=== PATIENT | male | born 1965 | race Asian ===

== ENCOUNTER 2016-10-23 12:23 | Emergency (ER) | payer OTHER ==
[2016-10-23 13:28] VITALS: BP 144/89
--- NOTE | 2016-10-23 15:00 | UC ---
Back Pain HPI - HPI Summary HPI Summary: The patient comes in today for: 1. Lower back pain: Onset: One month ago. But, it got worse yesterday. Palliative/provocative: Getting out of a chair makes it worse. Leaning forward makes it worse. Walking--he will feel it "a little bit." Not moving makes it better. Working during day, and it gets better--"I feel nothing." Quality: Tightness Region: Lower back. Severity: Sitting? 10/25. Getting out of chair: 04/24. Getting out of bed in AM 04/24 Time: Constant. Associated symptoms: Home treatment: None. Fevers: None. Bowel/bladder incontinence: None. Numbness: None. Weakness: None. Recent unexplained weight loss: None. Previous treatment: None. Previous x-ray of back: He is not sure. * - History of Current Complaint Chief Complaint: UCBackPain Stated Complaint: BACK PAIN Time Seen by Provider: 10/23/16 14:52 Hx Obtained From: Patient, Family/Player Services Representative - Allergies/Home Medications Allergies/Adverse Reactions: Allergies Allergy/AdvReac Type Severity Reaction Status Date / Time No Known Allergies Allergy Verified 12/18/15 16:30 PMH/Surg Hx/FS Hx/Imm Hx Previously Healthy: Yes Endocrine History Of: Denies: Diabetes, Thyroid Disease, Hyperthyroidism, Hypothyroidism, Dyslipidemia Cardiovascular History Of: Denies: Cardiac Disorders, Hypertension, Pacemaker/ICD, Myocardial Infarction , Congestive Heart Failure, Atrial Fibrillation, Deep Vein Thrombosis, Bleeding Disorders Respiratory History Of: Denies: COPD, Asthma, Bronchitis, Pneumonia, Pulmonary Embolism GI/ History Of: Denies: Gastroesophageal Reflux, Ulcer, Gastrointestinal Bleed, Gall Bladder Disease, Kidney Stones, Diverticulitis, Renal Disease, Urosepsis Neurological History Of: Denies: TIA, CVA, Dementia, Seizures, Migraine Psychological History Of: Denies: Anxiety, Depression, Bipolar Disorder, Schizophrenia, Post Traumatic Stress Disorder Cancer History Of: Denies: Lung Cancer, Colorectal Cancer, Breast Cancer, Prostate Cancer, Cervical Cancer Other History Of: Negative For: HIV, Hepatitis B, Hepatitis C, Anticoagulant Therapy - Surgical History Surgical History: None - Family History Known Family History: Positive: Renal Disease Negative: Cardiac Disease, Hypertension - Social History Occupation: Employed Full-time Lives: With Family Alcohol Use: Occasionally Substance Use Type: None Smoking Status (MU): Light Every Day Tobacco Smoker Amount Used/How Often: 1/2ppd Household Exposure Type: Cigarettes Review of Systems Constitutional: Negative Skin: Negative Eyes: Negative ENT: Negative Respiratory: Negative Cardiovascular: Negative Gastrointestinal: Negative Genitourinary: Negative Musculoskeletal: Arthralgia, Myalgia All Other Systems Reviewed And Are Negative: Yes Physical Exam Triage Information Reviewed: Yes Appearance: Well-Appearing, No Pain Distress, Well-Nourished Vital Signs: Initial Vital Signs Temp 97.8 F 10/23/16 13:24 Pulse 73 10/23/16 13:24 Resp 20 10/23/16 13:24 BP 144/89 10/23/16 13:24 Pulse Ox 98 10/23/16 13:24 Vital Signs Reviewed: Yes Eyes: Positive: Conjunctiva Clear. Negative: Discharge ENT: Positive: Hearing grossly normal. Negative: Pharyngeal erythema, Nasal congestion, Nasal drainage, TM bulging, TM dull, TM red, Tonsillar swelling, Tonsillar exudate Dental: Negative: Gross Decay/Caries @, Dental Fracture @ Neck: Positive: Supple, Nontender, No Lymphadenopathy. Negative: Nuchal Rigidity Respiratory: Positive: Chest non-tender, Lungs clear, No respiratory distress, No accessory muscle use. Negative: Crackles, Wheezing Cardiovascular: Positive: RRR, No Murmur Abdomen Description: Positive: Nontender, No Organomegaly, Soft. Negative: CVA Tenderness (R), CVA Tenderness (L), Distended, Guarding Musculoskeletal: Positive: Strength Intact, ROM Intact, Other: - Back: There is no tenderness of the lumbar paraspinous musculature. There is no SLR of either leg. DTR: Patellar: 2+/2 x 2 right and left. Achilles: 1+/2 x 2. There is tenderness to palpation of the right greater trochanteric bursa area. Neurological: Positive: Alert, Muscle Tone Normal Psychological: Positive: Age Appropriate Behavior, Consolable Skin: Negative: rashes, breakdown Back Pain Course/Dx - Course Course Of Treatment: Patient was encouraged to get an x-ray of the lumbar spine either today or when he follows up with his primary care provider. - Differential Dx/Diagnosis Differential Diagnosis/HQI/PQRI: Herniated Disc, Strain, Sprain Provider Diagnoses: Osteoarthritis of the lumbar spine. Discharge - Discharge Plan Condition: Stable Disposition: HOME Patient Education Materials: Osteoarthritis (ED) Referrals: Nain Tello MD [Primary Care Provider] - 1 Week (Please see your primary care provider in a week to see how well you are doing. If you get worse, please be seen sooner in the ER or through us.)
== END 2016-10-23 15:32 | disposition home or self-care (01) ==
LOC: UCEAST 12:23
DX: M47.816 Spondylosis without myelopathy or radiculopathy, lumbar region (principal); F17.210 Nicotine dependence, cigarettes, uncomplicated
CPT/HCPCS: 99212; G0463

== ENCOUNTER 2017-01-27 15:44 | Emergency (ER) | payer OTHER ==
[2017-01-27 16:15] VITALS: BP 146/94
--- NOTE | 2017-01-27 16:55 | UC ---
Maria E Israel Alok, scribed for Donny Loco MD on 01/27/17 at 1638 . Skin Complaint HPI - HPI Summary HPI Summary: 51M presents to the [facility] for a raised, erythematous, pruritus, painful sore on his right inner thigh. Pt states that what began as a 1/4 cm diameter bump at that did not irritate him grew in the past 2-3 years to 2 cm diameter sore after repeated picking/cleaning. Pt states he has similar 1/4 cm diameter bumps on his left hip and back which do not currently irritate him as well. Pt denies edema on any other parts of the leg. Pt states that his skin condition bleeds when being picked at. Pt denies medications. Pt smokes tobacco and drinks ETOH. Pt has no PCP. - History of Current Complaint Chief Complaint: UCSkin Stated Complaint: SORE ON LEG Hx Obtained From: Patient Onset/Duration: Lasting Weeks - since , Still Present Timing: Constant Onset Severity: Moderate Current Severity: Moderate Pain Intensity: 8 Pain Scale Used: 0-10 Numeric Location: Other - right leg Character: Pruritus, Pain, Redness, Raised Aggravating: Other - picking/cleaning sore - Allergy/Home Medications Allergies/Adverse Reactions: Allergies Allergy/AdvReac Type Severity Reaction Status Date / Time No Known Allergies Allergy Verified 01/27/17 16:03 Home Medications: Home Medications NK [No Home Medications Reported] 01/27/17 [History Confirmed 01/27/17] Review of Systems Skin: Other - sore right inner thigh Musculoskeletal: Negative All Other Systems Reviewed And Are Negative: Yes PMH/Surg Hx/FS Hx/Imm Hx Previously Healthy: Yes Endocrine History Of: Denies: Diabetes, Thyroid Disease, Hyperthyroidism, Hypothyroidism, Dyslipidemia Cardiovascular History Of: Denies: Cardiac Disorders, Hypertension, Pacemaker/ICD, Myocardial Infarction , Congestive Heart Failure, Atrial Fibrillation, Deep Vein Thrombosis, Bleeding Disorders Respiratory History Of: Denies: COPD, Asthma, Bronchitis, Pneumonia, Pulmonary Embolism GI/ History Of: Denies: Gastroesophageal Reflux, Ulcer, Gastrointestinal Bleed, Gall Bladder Disease, Kidney Stones, Diverticulitis, Renal Disease, Urosepsis Neurological History Of: Denies: TIA, CVA, Dementia, Seizures, Migraine Psychological History Of: Denies: Anxiety, Depression, Bipolar Disorder, Schizophrenia, Post Traumatic Stress Disorder Cancer History Of: Denies: Lung Cancer, Colorectal Cancer, Breast Cancer, Prostate Cancer, Cervical Cancer Other History Of: Negative For: HIV, Hepatitis B, Hepatitis C, Anticoagulant Therapy - Surgical History Surgical History: None - Family History Known Family History: Positive: Renal Disease Negative: Cardiac Disease, Hypertension - Social History Occupation: Employed Full-time Lives: With Family Alcohol Use: Daily Substance Use Type: None Smoking Status (MU): Heavy Every Day Tobacco Smoker Amount Used/How Often: 1/2ppd Household Exposure Type: Cigarettes - Immunization History Most Recent Tetanus Shot: unsure Physical Exam Triage Information Reviewed: Yes Appearance: Well-Appearing, No Pain Distress, Well-Nourished Vital Signs: Initial Vital Signs Temp 98.5 F 01/27/17 16:03 Pulse 73 01/27/17 16:03 Resp 16 01/27/17 16:03 BP 146/94 01/27/17 16:03 Pulse Ox 100 01/27/17 16:03 Vital Signs Reviewed: Yes Eyes: Positive: Conjunctiva Clear ENT: Positive: Normal ENT inspection Respiratory: Positive: Lungs clear, Normal breath sounds, No respiratory distress Cardiovascular: Positive: RRR, No Murmur Abdomen Description: Positive: Nontender Musculoskeletal: Positive: Strength Intact, ROM Intact Neurological Exam: Normal Neurological: Positive: Alert Psychological: Positive: Normal Response To Family, Age Appropriate Behavior Skin: Positive: Other - there is a skin lesion about the size of a walnut on his medial right lower thigh with raised, solid mass and rough surface. No active bleeding. No secondary cellulitis. It is mildy tender. He has a second lesion on the left posterior upper thight that is about 3/4 of a centimeter in diamter with similar appearance. Course/Dx - Course Course Of Treatment: 51 yr old male with two skin lesions, they have progressively gotten bigger over many years with most notable increase in size the past two years. He has also elevated blood pressure. he has been told he needs to go to the general surgeon for further work up of what these skin lesions are with possible removal/biopsy and further treatment plan. He will follow up with dr Landry for his blood pressure and health maintenance. The patient understands that these lesions could be skin cancers, and he knows to follow up with the surgeon as soon as possible to have these lesions further diagnosed. - Diagnoses Provider Diagnoses: Skin tumors/mass right thigh, and left posterior thigh. elevated blood pressure. Discharge - Discharge Plan Condition: Good Disposition: HOME Patient Education Materials: Hypertension (ED), Skin Cancer Prevention (ED), Soft Tissue Mass (ED) Referrals: Kyrie Marks MD [Medical Doctor] - 1 Day (be sure to call the surgeon as soon as possible for an appointment regarding your skin lesions. ) Nain Tello MD [Primary Care Provider] - 1 Day Additional Instructions: Be sure to have your blood pressure rechecked with primary care, and be sure you follow up with Dr Marks for your skin. The documentation as recorded by the Maria E garcia Alok accurately reflects the service I personally performed and the decisions made by me, Donny Loco MD.
== END 2017-01-27 16:49 | disposition home or self-care (01) ==
LOC: UCEAST 15:44
DX: R22.41 Localized swelling, mass and lump, right lower limb (principal); R03.0 Elevated blood-pressure reading, without diagnosis of hypertension; F17.210 Nicotine dependence, cigarettes, uncomplicated
CPT/HCPCS: 99211; G0463

== ENCOUNTER → 2017-01-28 | Emergency (ER) | payer OTHER ==
[~2017-01-28] MED LIST: Aspirin Low Dose CHEW TAB* 81 MG PO ONE; Hydrochlorothiazide TAB* 25 MG PO ONE; Hydrochlorothiazide TAB* 25 MG PO SCH; NS 0.9% 1000 ML* 1,000 ML IV ONE
[2017-01-28 13:32] LABS: Hematocrit 46 % (42-52); Hemoglobin 15.4 g/dl (14.0-18.0); Mean Corpuscular HGB Conc 34 g/dl (31-36); Mean Corpuscular Hemoglobin 32 pg (27-31); Mean Corpuscular Volume 95 fL (80-94); Mean Platelet Volume 8 um3 (7.4-10.4); Red Blood Count 4.81 10^6/ul (4.0-5.4); Red Cell Distribution Width 13 % (10.5-15); White Blood Count 5.1 10^3/ul (3.5-10.8)
[2017-01-28 13:39] LABS: BUN/Creatinine Ratio 15.1 (8-20); Calcium 8.8 mg/dL (8.6-10.3); EGFR African American 109.3 (>60); Globulin 2.7 g/dL (2-4); Potassium 4.1 mmol/L (3.5-5.0); Total Bilirubin 0.6 mg/dL (0.2-1.0); Total Protein 6.7 g/dL (6.4-8.9)
[2017-01-28 13:42] LABS: Troponin I 0.01 ng/mL (<0.04)
--- NOTE | 2017-01-28 13:44 | RAD ---
INDICATION: Chest pain. COMPARISON: Comparison is made with a prior study from September 12, 2016. TECHNIQUE: Dual-energy PA and lateral views of the chest were obtained. FINDINGS: The heart is within normal limits in size. Mediastinal and hilar contours appear within normal limits. There is a linear density at the right lung base consistent with subsegmental atelectasis. The lungs are otherwise clear. No pleural effusion or pneumothorax is seen. IMPRESSION: NO EVIDENCE FOR ACTIVE CARDIOPULMONARY DISEASE.
--- NOTE | 2017-01-28 14:43 | CONSULT ---
Subjective Date of Service: 01/28/17 Interval History: 51 yo M with hx of recently diagnosed HTN, tobacco abuse p/w intermittent chest pain. He reports he has been having this chest pain for about 1 week. It is located in the L side of the chest and is a brief stabbing pain that resolves within seconds. States it is TTP when it occurs, non-pleuritic, no worse with exertion. Sometimes feels SOB with symptoms, no diaphoresis, numbness/tingling. He has not taken anything for it. He initially felt it was likely a MSK problem but he went to Urgent Care yesterday for an unrelated reason (skin lesions) and was told he had HTN and now he thought the symptoms may have been due to that and/or a cardiac problem. Family History: Findings - None Social History: Findings - Up to 1 PPD at most, usually 2-3 cigarettes x 40 years, occasional excessive EtOH up to 6-7/day, no drug use Past Medical History: Findings - Recently diagnosed HTN Review of Systems - Measurements Intake and Output: Intake and Output Last 24 Hours 01/26/17 01/27/17 01/28/17 01/29/17 06:59 06:59 06:59 06:59 Weight 90.718 kg - Review of Systems Constitutional Symptoms: Negative: Fever Dermatology: Positive: Normal HEENT: Positive: Normal Eyes: Positive: Normal Thyroid: Positive: Normal Pulmonary: Positive: Shortness of Breath Cardiology: Positive: Chest Pain Negative: Palpitations, Syncope Gastroenterology: Positive: Nausea Negative: Vomiting Genital - Urinary: Positive: Normal Endocrinology: Positive: Normal Psychiatry: Positive: Anxiety Objective Active Medications: Hydrochlorothiazide (Hydrodiuril Tab*) 25 mg PO DAILY BELLE Vital Signs 01/28/17 01/28/17 01/28/17 10:34 11:15 11:16 Temperature 98.1 F Pulse Rate 78 71 Respiratory 20 Rate Blood Pressure 182/85 156/96 (mmHg) O2 Sat by Pulse 99 98 Oximetry 01/28/17 01/28/17 01/28/17 11:20 11:30 12:00 Temperature 98.0 F Pulse Rate 68 73 68 Respiratory 12 13 14 Rate Blood Pressure 156/96 145/88 134/96 (mmHg) O2 Sat by Pulse 97 98 97 Oximetry 01/28/17 01/28/17 01/28/17 12:30 13:00 13:30 Temperature Pulse Rate 66 66 68 Respiratory 11 13 15 Rate Blood Pressure 133/89 141/84 (mmHg) O2 Sat by Pulse 97 99 100 Oximetry 01/28/17 13:36 Temperature Pulse Rate Respiratory 10 Rate Blood Pressure 154/94 (mmHg) O2 Sat by Pulse Oximetry Oxygen Devices in Use Now: None Appearance: Middle-aged, M, laying in bed in NAD Eyes: No Scleral Icterus Ears/Nose/Mouth/Throat: Mucous Membranes Moist Neck: NL Appearance and Movements; NL JVP Respiratory: Symmetrical Chest Expansion and Respiratory Effort, Clear to Auscultation Cardiovascular: NL Sounds; No Murmurs; No JVD, RRR Abdominal: NL Sounds; No Tenderness; No Distention Lymphatic: No Cervical Adenopathy Extremities: No Edema Skin: - - R thigh lesion, hyperkeratotic 2-3 cm lesions, non-tender, no surrounding erythema Neurological: Alert and Oriented x 3 Result Diagrams: 01/28/17 11:52 01/28/17 11:52 Assessment/Plan - Billing CP in a 51 yo M with hx of newly diagnosed HTN. Chest pain does not sound cardiac in nature (fleeting, reproducible, non- exertional) although the patient does have cardiac risk factors. I offered to monitor the patient overnight and do a stress test in the AM but he did not want to stay as he says he has too much to do in the morning tomorrow. I stated we could arrange for an outpatient stress test which he was agreeable to. I will start HCTZ 25 mg daily for HTN and he will follow-up with Dr. Tello in the clinic. In regards to his skin lesion he will contact the surgery office as instructed at urgent care.
[2017-01-28 16:15] VITALS: BP 146/78
--- NOTE | 2017-01-29 13:49 | ED ---
Lupe Israel Anna, scribed for MarquiseubalexeyiDane MD on 01/28/17 at 1335 . Dizziness - HPI Summary HPI Summary: Patient is a 51 y/o male coming to [facility] presenting with 4 days of left sided CP , worsened. Associated with mild SOB, and nausea. Denies syncope. Pt is also concerned of his elevated BP. He does not take medicines and does not see a doctor regularly. Patient medications were reviewed this visit. - History Of Current Complaint Chief Complaint: EDHypertension Stated Complaint: CHEST PAIN/HIGH BP Time Seen by Provider: 01/28/17 13:06 Hx Obtained From: Patient Onset/Duration: Resolved Timing: Seconds Severity Initially: Moderate Severity Currently: Moderate - Allergies/Home Medications Allergies/Adverse Reactions: Allergies Allergy/AdvReac Type Severity Reaction Status Date / Time No Known Allergies Allergy Verified 01/27/17 16:03 PMH/Surg Hx/FS Hx/Imm Hx Endocrine/Hematology History: Denies: Hx Anticoagulant Therapy, Hx Diabetes, Hx Thyroid Disease Cardiovascular History: Denies: Hx Congestive Heart Failure, Hx Deep Vein Thrombosis, Hx Hypertension , Hx Myocardial Infarction, Hx Pacemaker/ICD Respiratory History: Denies: Hx Asthma, Hx Chronic Obstructive Pulmonary Disease (COPD), Hx Lung Cancer, Hx Pneumonia, Hx Pulmonary Embolism GI History: Denies: Hx Gall Bladder Disease, Hx Gastrointestinal Bleed, Hx Ulcer, Hx Urosepsis History: Denies: Hx Kidney Stones, Hx Renal Disease Neurological History: Denies: Hx Dementia, Hx Migraine, Hx Seizures, Hx Transient Ischemic Attacks (TIA) Psychiatric History: Denies: Hx Anxiety, Hx Depression, Hx Schizophrenia, Hx Bipolar Disorder Infectious Disease History: No Infectious Disease History: Denies: Traveled Outside the [place] in Last 30 Days - Family History Known Family History: Positive: Renal Disease Negative: Cardiac Disease, Hypertension - Social History Lives: With Family Alcohol Use: Daily Substance Use Type: Reports: None Smoking Status (MU): Heavy Every Day Tobacco Smoker Amount Used/How Often: 1/2ppd Review of Systems Positive: Chest Pain - intermittent, currently resolved Positive: Shortness Of Breath Positive: Nausea Neurological: Other - dizziness Negative: Syncope Psychological: Normal All Other Systems Reviewed And Are Negative: Yes Physical Exam Triage Information Reviewed: Yes Vital Signs On Initial Exam: Initial Vitals Temp Pulse Resp BP Pulse Ox 98.1 F 78 20 182/85 99 01/28/17 10:34 01/28/17 10:34 01/28/17 10:34 01/28/17 10:34 01/28/17 10:34 Vital Signs Reviewed: Yes Appearance: Positive: Well-Appearing - No acute distress, nontoxic Skin: Positive: Warm, Skin Color Reflects Adequate Perfusion, Dry, Other - Small verrucous growth, about 2 cm diameter on anterior mid right thigh Eyes: Positive: EOMI, MARCO A, Conjunctiva Clear ENT: Positive: Normal ENT inspection Respiratory/Lung Sounds: Positive: Clear to Auscultation, Breath Sounds Present. Negative: Rales, Rhonchi, Wheezes Cardiovascular: Positive: RRR, S1, S2. Negative: Murmur, Rub, Other - no gallops Abdomen Description: Positive: Nontender, Soft. Negative: Distended, Guarding, Other: - no rebound Bowel Sounds: Positive: Present Musculoskeletal: Positive: Normal, Strength/ROM Intact Neurological: Positive: Normal, Sensory/Motor Intact, Alert, Oriented to Person Place, Time Psychiatric: Positive: Affect/Mood Appropriate - [place] Coma Scale Coma Scale Total: 15 Diagnostics - Vital Signs Vital Signs Temp Pulse Resp BP Pulse Ox 01/28/17 12:30 66 11 133/89 97 01/28/17 12:00 68 14 134/96 97 01/28/17 11:30 73 13 145/88 98 01/28/17 11:20 98.0 F 68 12 156/96 97 01/28/17 11:16 71 98 01/28/17 11:15 156/96 01/28/17 10:34 98.1 F 78 20 182/85 99 - Laboratory Lab Results: Lab Results 01/28/17 01/28/17 01/28/17 Range/Units 11:52 11:52 11:52 WBC 5.1 (3.5-10.8) 10^3/ul RBC 4.81 (4.0-5.4) 10^6/ul Hgb 15.4 (14.0-18.0) g/dl Hct 46 (42-52) % MCV 95 H (80-94) fL MCH 32 H (27-31) pg MCHC 34 (31-36) g/dl RDW 13 (10.5-15) % Plt Count 167 (150-450) 10^3/ul MPV 8 (7.4-10.4) um3 Neut % (Auto) 57.6 (38-83) % Lymph % (Auto) 30.7 (25-47) % Twiggs % (Auto) 8.8 (1-9) % Eos % (Auto) 2.0 (0-6) % Baso % (Auto) 0.9 (0-2) % Absolute Neuts (auto) 3.0 (1.5-7.7) 10^3/ul Absolute Lymphs (auto) 1.6 (1.0-4.8) 10^3/ul Absolute Monos (auto) 0.4 (0-0.8) 10^3/ul Absolute Eos (auto) 0.1 (0-0.6) 10^3/ul Absolute Basos (auto) 0 (0-0.2) 10^3/ul Absolute Nucleated RBC 0 10^3/ul Nucleated RBC % 0.1 INR (Anticoag Therapy) 0.86 L (0.89-1.11) APTT 27.9 (26.0-36.3) seconds Sodium 135 (133-145) mmol/L Potassium 4.1 (3.5-5.0) mmol/L Chloride 105 (101-111) mmol/L Carbon Dioxide 25 (22-32) mmol/L Anion Gap 5 (2-11) mmol/L BUN 14 (6-24) mg/dL Creatinine 0.93 (0.67-1.17) mg/dL Est GFR ( Amer) 109.3 (>60) Est GFR (Non-Af Amer) 85.0 (>60) BUN/Creatinine Ratio 15.1 (8-20) Glucose 111 H (70-100) mg/dL Calcium 8.8 (8.6-10.3) mg/dL Total Bilirubin 0.60 (0.2-1.0) mg/dL AST 29 (13-39) U/L ALT 36 (7-52) U/L Alkaline Phosphatase 54 (34-104) U/L Total Creatine Kinase 77 (10-223) U/L CK-MB (CK-2) 1.7 (0.6-6.3) ng/mL Myoglobin 22.1 (17.4-105.7) ng/mL Troponin I 0.01 (<0.04) ng/mL B-Natriuretic Peptide ( - 100) pg/mL Total Protein 6.7 (6.4-8.9) g/dL Albumin 4.0 (3.2-5.2) g/dL Globulin 2.7 (2-4) g/dL Albumin/Globulin Ratio 1.5 (1-3) 01/28/17 01/28/17 Range/Units 11:52 15:57 WBC (3.5-10.8) 10^3/ul RBC (4.0-5.4) 10^6/ul Hgb (14.0-18.0) g/dl Hct (42-52) % MCV (80-94) fL MCH (27-31) pg MCHC (31-36) g/dl RDW (10.5-15) % Plt Count (150-450) 10^3/ul MPV (7.4-10.4) um3 Neut % (Auto) (38-83) % Lymph % (Auto) (25-47) % Twiggs % (Auto) (1-9) % Eos % (Auto) (0-6) % Baso % (Auto) (0-2) % Absolute Neuts (auto) (1.5-7.7) 10^3/ul Absolute Lymphs (auto) (1.0-4.8) 10^3/ul Absolute Monos (auto) (0-0.8) 10^3/ul Absolute Eos (auto) (0-0.6) 10^3/ul Absolute Basos (auto) (0-0.2) 10^3/ul Absolute Nucleated RBC 10^3/ul Nucleated RBC % INR (Anticoag Therapy) (0.89-1.11) APTT (26.0-36.3) seconds Sodium (133-145) mmol/L Potassium (3.5-5.0) mmol/L Chloride (101-111) mmol/L Carbon Dioxide (22-32) mmol/L Anion Gap (2-11) mmol/L BUN (6-24) mg/dL Creatinine (0.67-1.17) mg/dL Est GFR ( Amer) (>60) Est GFR (Non-Af Amer) (>60) BUN/Creatinine Ratio (8-20) Glucose (70-100) mg/dL Calcium (8.6-10.3) mg/dL Total Bilirubin (0.2-1.0) mg/dL AST (13-39) U/L ALT (7-52) U/L Alkaline Phosphatase (34-104) U/L Total Creatine Kinase (10-223) U/L CK-MB (CK-2) (0.6-6.3) ng/mL Myoglobin (17.4-105.7) ng/mL Troponin I 0.01 (<0.04) ng/mL B-Natriuretic Peptide 22 ( - 100) pg/mL Total Protein (6.4-8.9) g/dL Albumin (3.2-5.2) g/dL Globulin (2-4) g/dL Albumin/Globulin Ratio (1-3) Result Diagrams: 01/28/17 11:52 01/28/17 11:52 Lab Statement: Any lab studies that have been ordered have been reviewed, and results considered in the medical decision making process. - Radiology CXR Xray Interpretation: No Acute Changes Radiology Interpretation Completed By: Radiologist - EKG 1055 Cardiac Rate: NL - 72 bpm EKG Rhythm: Sinus Rhythm ST Segment: Normal Ectopy: None Dizzy Course/Dx - Course Assessment/Plan: Patient is a 51 y/o male coming to [facility] presenting with dizziness that began four days ago. Initial troponin is 0.01. CXR shows no signs of acute distress. EKG reveals NSR at 72 bpm. Discussed lifestyle changes with family and need for stress test. Repeat troponin is 0.01. After conversation with Dr. Carlos, hospitalist, patient and family opt for outpatient stress test. Patient is stable and will be discharged home with follow up recommendations. - Diagnoses Provider Diagnoses: Chest pain - Provider Notifications Discussed Care Of Patient with: Dr. Carlos (hospitalist) at 1433. The patient does not want to stay, and he will be ordered an outpatient stress test. Discharge - Discharge Plan Condition: Stable Disposition: HOME Prescriptions: Hydrochlorothiazide TAB* [Hydrodiuril TAB*] 25 mg PO DAILY #30 tab Patient Education Materials: Hydrochlorothiazide (By mouth), Chronic Hypertension (ED) Referrals: Nain Tello MD [Primary Care Provider] - Walter Palomo MD [Medical Doctor] - Additional Instructions: Follow up with primary care physician within 48 hours and certified maintenance welder for stress test. Return to the Emergency Department for new or worsening symptoms. The documentation as recorded by the Lupe garcia Anna accurately reflects the service I personally performed and the decisions made by Tone roper Afoma Frances, MD.
== END | disposition home or self-care (01) ==
LOC: ED 10:33 → UNDOADMOB 14:08 → MEDTELE 14:08
DX: R07.9 Chest pain, unspecified (principal); I10 Essential (primary) hypertension
CPT/HCPCS: 36415; 71020; 80053; 82550; 82553; 83874; 83880; 84484; 85025; 85610; 85730; 93005; 99283; A9270-GY

== ENCOUNTER 2017-07-08 17:35 | Emergency (ER) | payer OTHER ==
[2017-07-08 18:00] VITALS: BP 144/64
[2017-07-08] MEDS ORDERED: methylPREDNISolone 125 MG* 2 ML VIAL IM ONE (18:20)
--- NOTE | 2017-07-08 18:20 | UC ---
Back Pain HPI - HPI Summary HPI Summary: 51 year old male presents with lower back pain and right thigh pain. - History of Current Complaint Chief Complaint: UCBackPain Stated Complaint: BACK PAIN Time Seen by Provider: 07/08/17 18:10 Hx Obtained From: Patient Onset/Duration: Sudden Onset Timing: Constant Severity Initially: Moderate Severity Currently: Moderate Pain Scale Used: 0-10 Numeric - 8 Character: Sharp Aggravating Factor(s): Movement, Lifting, Bending - Allergies/Home Medications Allergies/Adverse Reactions: Allergies Allergy/AdvReac Type Severity Reaction Status Date / Time No Known Allergies Allergy Verified 07/08/17 18:00 PMH/Surg Hx/FS Hx/Imm Hx Previously Healthy: Yes Other History Of: Negative For: HIV, Hepatitis B, Hepatitis C, Anticoagulant Therapy - Surgical History Surgical History: None - Family History Known Family History: Positive: Renal Disease Negative: Cardiac Disease, Hypertension - Social History Alcohol Use: Daily Alcohol Amount: last drink was one week ago Substance Use Type: None Smoking Status (MU): Current Some Day Smoker Amount Used/How Often: 1/2ppd Household Exposure Type: Cigarettes - Immunization History Most Recent Tetanus Shot: unsure Review of Systems Constitutional: Negative Skin: Negative Eyes: Negative ENT: Negative Respiratory: Negative Cardiovascular: Negative Gastrointestinal: Negative Genitourinary: Negative Motor: Negative Neurovascular: Negative Musculoskeletal: Other: - lower back pain right thigh pain Neurological: Negative Psychological: Negative All Other Systems Reviewed And Are Negative: Yes Physical Exam Triage Information Reviewed: Yes Vital Signs: Initial Vital Signs Temp 36.3 C 07/08/17 17:55 Pulse 70 07/08/17 17:55 Resp 20 07/08/17 17:55 BP 144/64 07/08/17 17:55 Pulse Ox 99 07/08/17 17:55 Eye Exam: Normal ENT Exam: Normal Dental Exam: Normal Neck exam: Normal Neck: Positive: 1 Respiratory Exam: Normal Cardiovascular Exam: Normal Abdominal Exam: Normal Musculoskeletal: Positive: Strength Limited @, ROM Limited @, Other: - right thigh pain lower back pain Neurological Exam: Normal Psychological Exam: Normal Skin Exam: Normal Diagnostics - Radiology No standard instances Radiology Interpretation Completed By: Radiologist Back Pain Course/Dx - Differential Dx/Diagnosis Provider Diagnoses: bilateral si pain. right greater trochanteric pain Discharge - Discharge Plan Condition: Stable Disposition: HOME Prescriptions: Methocarbamol TAB* [Robaxin 500 MG TAB*] 500 mg PO TID PRN #30 tab PRN Reason: Spasms - Back Methylprednisolone [Medrol Dosepak 4 MG*] 4 mg PO .SEE [place] [employer] #21 tab Patient Education Materials: Hip Bursitis (ED), Sacroiliitis (ED) [place] [facility] [place] [Medical Doctor] - Nain Tello MD [Primary Care Provider] -
== END 2017-07-08 18:50 | disposition home or self-care (01) ==
LOC: UCEAST 17:35
DX: M53.3 Sacrococcygeal disorders, not elsewhere classified (principal); M25.551 Pain in right hip; Z72.0 Tobacco use
CPT/HCPCS: 96372; 99212; G0463; J2930

== ENCOUNTER 2018-04-30 13:27 | Emergency (ER) | payer OTHER ==
--- NOTE | 2018-04-30 13:47 | ED ---
HPI Chest Pain - HPI Summary HPI Summary: Pt is a 52 y/o M c/o CP and SOB onset earlier this date. Pain is described as and rated an 8/10, per triage. Friend at bedside, reports that when he is dealing with SOB episodes, it is very scary when he is grasping for air. They also note that these episodes mostly come on at night. Assoc. Sx: Dyspnea at rest, CP, SOB. Denies: cough. Denies taking any aspirin today. PMHx: Denies CAD. FHx: Denies CAD - History of Current Complaint Chief Complaint: EDChestPainROMI Hx Obtained From: Patient Timing: Constant Current Severity: Severe Pain Intensity: 8 Pain Scale Used: 0-10 Numeric Chest Pain Location: Mid Sternal Chest Pain Radiates: No Character: Dyspnea at Rest, Other: - NEG: cough POS: SOB, CP - Allergy/Home Medications Allergies/Adverse Reactions: Allergies Allergy/AdvReac Type Severity Reaction Status Date / Time No Known Allergies Allergy Verified 04/30/18 13:37 PMH/Surg Hx/FS Hx/Imm Hx Endocrine/Hematology History: Denies: Hx Anticoagulant Therapy, Hx Diabetes, Hx Thyroid Disease Cardiovascular History: Reports: Hx Angina, Hx Hypertension Denies: Hx Congestive Heart Failure, Hx Coronary Artery Disease, Hx Deep Vein Thrombosis, Hx Hypercholesterolemia, Hx Myocardial Infarction, Hx Pacemaker /ICD, Hx Valvular Heart Disease Respiratory History: Denies: Hx Asthma, Hx Chronic Obstructive Pulmonary Disease (COPD), Hx Lung Cancer, Hx Pneumonia, Hx Pulmonary Embolism GI History: Denies: Hx Gall Bladder Disease, Hx Gastrointestinal Bleed, Hx Ulcer, Hx Urosepsis History: Denies: Hx Kidney Stones, Hx Renal Disease Neurological History: Denies: Hx Dementia, Hx Migraine, Hx Seizures, Hx Transient Ischemic Attacks (TIA) Psychiatric History: Denies: Hx Anxiety, Hx Depression, Hx Schizophrenia, Hx Bipolar Disorder Infectious Disease History: No Infectious Disease History: Denies: Hx Clostridium Difficile, Hx Hepatitis, Hx Human Immunodeficiency Virus (HIV), Hx of Known/Suspected MRSA, Hx Shingles, Hx Tuberculosis, Hx Known/ Suspected VRE, Hx Known/Suspected VRSA, History Other Infectious Disease, Traveled Outside the [place] in Last 30 Days - Family History Known Family History: Positive: Renal Disease Negative: Cardiac Disease, Hypertension - Social History Occupation: Employed Full-time Lives: With Family Alcohol Use: Daily Alcohol Amount: last drink was one week ago Substance Use Type: Reports: None Hx Tobacco Use: Yes Smoking Status (MU): Current Some Day Smoker Amount Used/How Often: 1/2ppd Review of Systems Negative: Fever, Chills, Fatigue, Skin Diaphoresis Negative: Photophobia, Blurred Vision, Diplopia, Drainage, Erythema Negative: Epistaxis, Dental Pain, Sore Throat, Ear Ache, Nasal Discharge Positive: Chest Pain. Negative: Palpitations Positive: Shortness Of Breath, Other - Dyspnea at rest. Negative: Cough Negative: Abdominal Pain, Vomiting, Diarrhea, Nausea Negative: burning, dysuria, discharge, frequency, flank pain, hematuria, incontinence, pain, urgency Negative: Arthralgia, Myalgia, Decreased ROM, Edema Negative: Rash, Bruising Negative: Headache, Weakness, Paresthesia, Numbness, Syncope, Slurred Speech Negative: Anxious, Depressed All Other Systems Reviewed And Are Negative: Yes Physical Exam - Summary Physical Exam Summary: Constitutional: Well-developed, Well-nourished, Alert. (-) Distressed Skin: Warm, Dry HENT: Normocephalic; Atraumatic Eyes: Conjunctiva normal Neck: Musculoskeletal ROM normal neck. (-) JVD, (-) Stridor, (-) Tracheal deviation Cardio: Rhythm regular, rate normal, Heart sounds normal; Intact distal pulses; The pedal pulses are 2+ and symmetric. Radial pulses are 2+ and symmetric. (-) Murmur Pulmonary/Chest wall: Diminished breath sounds. (-) Respiratory distress, (-) Wheezes, (-) Rales Abd: Soft, (-) epigastric tenderness, (-) Distension, (-) Guarding, (-) Rebound Musculoskeletal: (-) Edema Lymph: (-) Cervical adenopathy Neuro: Alert, Oriented x3 Psych: Mood and affect Normal Triage Information Reviewed: Yes Vital Signs On Initial Exam: Initial Vitals Temp Pulse Resp BP Pulse Ox 98.4 F 78 18 159/71 96 04/30/18 13:32 04/30/18 13:32 04/30/18 13:32 04/30/18 13:32 04/30/18 13:32 Vital Signs Reviewed: Yes Diagnostics - Vital Signs Vital Signs Temp Pulse Resp BP Pulse Ox 04/30/18 13:32 98.4 F 78 18 159/71 96 - Laboratory Result Diagrams: 04/30/18 13:54 04/30/18 13:54 Lab Statement: Any lab studies that have been ordered have been reviewed, and results considered in the medical decision making process. - Radiology CXR Xray Interpretation: No Acute Changes - IMPRESSION: No active cardiopulmonary disease is noted. Radiology Interpretation Completed By: Radiologist - Report has been reviewed by provider and radiologist. - EKG 1425 Cardiac Rate: NL - 70 bpm EKG Rhythm: Sinus Rhythm ST Segment: Normal Re-Evaluation - Re-Evaluation First Eval Re-Evaluation Time: 17:00 Change: Improved Comment: Patient is feeling much better; chest tightness has resolved: Unclear which treatment relieved CP. Chest Pain Course/Dx - Course Course Of Treatment: Provider discussed increased risk of from [place] but pt will leave AMA, regardless. Provider states this bc he has increased troponin levels. Provider reccomends taking Aspirin daily. - Diagnoses Provider Diagnoses: Chest pain, SOB (shortness of breath) Discharge - Sign-Out/Discharge Documenting (check all that apply): Patient Departure - Discharge Plan Condition: Stable Disposition: AGAINST MEDICAL ADVICE Prescriptions: Albuterol HFA INHALER* [Ventolin HFA Inhaler*] 1 puff INH Q4H PRN #1 mdi PRN Reason: Shortness Of Breath Aspirin TAB* [Aspirin 325 MG TAB*] 325 mg PO DAILY #30 tab predniSONE TAB* [Deltasone TAB*] 50 mg PO DAILY #4 tab Patient Education Materials: Chest Pain (ED), Shortness of Breath (ED) Referrals: [facility] [Outside] - 2 Days
[2018-04-30 14:10] LABS: ABS Basophils 0.1 10^3/ul (0-0.2); ABS Eosinophils 0.1 10^3/ul (0-0.6); ABS Lymphocytes 1.5 10^3/ul (1.0-4.8); ABS Monocytes 0.5 10^3/ul (0-0.8); ABS Neutrophils 3.1 10^3/ul (1.5-7.7); ABS Nucleated RBC 0 10^3/ul; Eosinophil % 2.3 % (0-6); Hematocrit 43 % (42-52); Hemoglobin 14.6 g/dl (14.0-18.0); Lymphocyte % 29.3 % (25-47); Mean Corpuscular HGB Conc 34 g/dl (31-36); Mean Corpuscular Hemoglobin 32 pg (27-31); Mean Corpuscular Volume 95 fL (80-94); Mean Platelet Volume 7.4 um3 (7.4-10.4); Nucleated Red Blood Cells % 0.1; Platelet Count 168 10^3/ul (150-450); Red Cell Distribution Width 14 % (10.5-15); White Blood Count 5.2 10^3/ul (3.5-10.8)
--- NOTE | 2018-04-30 14:19 | RAD ---
Indication: Chest pain. Single frontal view of the chest performed at 1358 hours was reviewed. Comparison is made with previous exam dated January 28, 2017. No mediastinal shift is noted. Heart is of normal size and configuration. Lung robin appear clear. IMPRESSION: NO ACTIVE CARDIOPULMONARY DISEASE IS NOTED.
[2018-04-30] MEDS ORDERED: Nitroglycerin TAB 0.4 MG* 0.4 MG TAB SL ONE (14:25)
[2018-04-30] MEDS ORDERED: methylPREDNISolone 125 MG* 2 ML VIAL IV ONE (14:25)
[2018-04-30] MEDS ORDERED: Aspirin 81 mg CHEW TAB* 81 MG TAB.CHEW PO ONE (14:25)
[2018-04-30] MEDS ORDERED: Albuterol/Ipratropium NEB.SOL* Albuterol 2.5 MG/Ipratropium 0.5 MG 3 ML INH ONE (14:25)
[2018-04-30 14:27] LABS: EGFR Non-African American 90.2 (>60)
[2018-04-30 15:18] LABS: Urine Appearance Clear; Urine Blood 1+ (Negative); Urine Color Yellow; Urine Ketones Negative (Negative); Urine Protein Negative (Negative); Urine Red Blood Cell 1+(3-5/hpf) (Absent); Urine Specific Gravity 1.015 (1.010-1.030); Urine Urobilinogen Negative (Negative); Urine White Blood Cell Trace(0-5/hpf) (Absent)
[2018-04-30 18:23] VITALS: BP 177/74
== END 2018-04-30 18:40 | disposition left against medical advice (07) ==
LOC: ED 13:27
DX: R07.89 Other chest pain (principal); R06.02 Shortness of breath; Z72.0 Tobacco use
CPT/HCPCS: 36415; 71045; 80053; 81003; 81015; 83605; 83880; 84484; 85025; 85379; 87086; 93005; 96374; 99284; A9270-GY; J2930

== ENCOUNTER → 2018-07-07 14:34 | Emergency (ER) | payer OTHER ==
[~2018-07-07 14:34] MED LIST changes: -Aspirin Low Dose CHEW TAB* 81 MG PO ONE; +Diazepam TAB(*) 5 MG PO ONE; -Hydrochlorothiazide TAB* 25 MG PO ONE; -Hydrochlorothiazide TAB* 25 MG PO SCH; +Iohexol 300* (CONTRAST) 10 ML SDV IV ONE; +Ketorolac INJ* 30 MG/ML 1 ML VIAL IV PUSH ONE; +Morphine INJ* 4 MG/ML 1 ML SYRINGE (NEW SYRINGE VERSION) IV ONE; -NS 0.9% 1000 ML* 1,000 ML IV ONE; +Ondansetron INJ* 2 MG/ML VIAL IV ONE; +methylPREDNISolone SOD 40 MG* 1 ML VIAL IV ONE
--- OUTSIDE RECORDS SUMMARY | 2018-07-07 14:40 | XMS REPORT ---
:1965 External Reference #:[id number] Author Organization [facility] Address [address] [place] [address] [place] [address] Phone [phone] Care Team Providers Name Role Phone [facility] Cap Referral Line Care Team Information Boom Supervisor Unavailable Nain Tello MD Primary Care Physician Unavailable Payers Type Date Identification Numbers Payment Provider Subscriber Commercial Policy Number: [id number] [place] Shanell James Group Name: [id number] [address] [id number] PayID: [id number] [place] [address] Problems Date Description Provider Status Onset: 09/12/2016 Body mass index 30+ - obesity Nain Tello M.D.,GIGI Active Onset: 02/05/2017 Essential hypertension Nain Tello M.D.,FACP Active Onset: 02/05/2017 Ex-smoker Nain Tello M.D.,FACP Active Family History Date Family Member(s) Problem(s) Comments Father due to Accident () Father due to () - when Accidental patient 7 : (age 80 Mother due to Pneumonia Years) Siblings 6 First Brother Kidney Disease had renal transplant Social History Type Date Description Comments Marital Status Lives With 09/12/2016 Family 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 Cigarette Use Quit - Age 44 Cigarette Use Patient is a current cigarette 1/2 pack smoker, smokes every day Cigarette Use < 1/2 ppd; started age 16 ETOH Use Occasionally consumes alcohol ETOH Use Consumes 2 six packs of beer per day Smoking Patient is a former smoker Quit 01/2017 Recreational Drug Use Denies Drug Use Daily Caffeine 09/12/2016 Consumes on average 1 cup of regular coffee per day Exercise Type/Frequency Gym workout 3-4x/week Exercise Type/Frequency Does not exercise General Hx Text 4 children Allergies, Adverse Reactions, Alerts Date Description Reaction Status Severity Comments 09/12/2016 NKDA active Medications Medication Date Status Form Strength Qnty SIG Indications Ordering Provider Ibuprofen 06/10/ Active Tablets 600mg 30tabs 1 tab S23.3xxA Vilma 2018 by wesly Reece M.D. three times a day as needed Cyclobenzaprine HCL 06/10/ Active Tablets 10mg 10tabs 1 S23.3xxA Vilma 2018 tablet Reece, by Ezekiel mouth at night No Active Medications 06/10/ Hx Unknown 2017 - 2017 No Active Medications 09/12/ Hx Unknown 2015 - 2016 Alprazolam 12/28/ Hx Tablets 0.5mg 90tabs 1 Donny Key 2009 tablet Clare, po tid M.DStoney prn Hydrochlorothiazide / Hx Tablets 25mg 90tabs 1 by Nain Quesada Wanda, 06/10/ claudia Falcon,FACP 2017 Vital Signs Date Vital Result Comment 06/10/2018 Height 67 inches 5'7" Weight 225.00 lb Heart Rate 80 /min BP Systolic Sitting 120 mmHg BP Diastolic Sitting 72 mmHg Pain Level 9 O2 % BldC Oximetry 93 % BMI (Body Mass Index) 35.2 kg/m2 02/17/2017 Heart Rate 72 /min BP Systolic 132 mmHg BP Diastolic 84 mmHg Respiratory Rate 16 /min Body Temperature 97.1 F 02/05/2017 Weight 222.12 lb Heart Rate 72 /min BP Systolic Sitting 126 mmHg BP Diastolic Sitting 80 mmHg BP Systolic Recheck 130 mmHg BP Diastolic Recheck 78 mmHg Body Temperature 98.5 F O2 % BldC Oximetry 97 % 02/03/2017 Heart Rate 72 /min BP Systolic 130 mmHg BP Diastolic 84 mmHg Respiratory Rate 18 /min Body Temperature 97.5 F 09/12/2016 Height 67 inches 5'7" Weight 220.38 lb Heart Rate 73 /min BP Systolic 150 mmHg BP Diastolic 84 mmHg BP Systolic Recheck 135 mmHg BP Diastolic Recheck 74 mmHg Body Temperature 98.1 F O2 % BldC Oximetry 98 % BMI (Body Mass Index) 34.5 kg/m2 12/28/2009 Height 68.5 inches 5'8.50" Weight 181.00 lb Heart Rate 60 /min BP Systolic Sitting 120 mmHg BP Diastolic Sitting 78 mmHg BMI (Body Mass Index) 27.1 kg/m2 Results Test Date Test Result H/L Range Note Laboratory test finding 04/30/2018 Troponin-I (TnI) 0.03 ng/mL <0.04 Urinalysis Profile 04/30/2018 Urine Color Yellow Urine Appearance Clear Urine Specific [place] 1.015 1.010-1.030 Urine pH 7.0 5-9 Urine Urobilinogen Negative Negative Urine Ketones Negative Negative Urine Protein Negative Negative Urine Leukocytes Negative Negative Urine Blood 1+ Negative Urine Nitrite Negative Negative Urine Bilirubin Negative Negative Urine Glucose Negative Negative Urine White Blood Cell Trace(0-5/hpf) Absent Urine Red Blood Cell 1+(3-5/hpf) Absent Urine Bacteria Absent Absent Urine Culture And 04/30/2018 Urine Culture SEE RESULT 1 Sensitivities BELOW Laboratory test 04/30/2018 D Dimer Quantitative < 200 ng/mL Less Than 2 finding 230 B-Type Natriuretic Peptide BNP 8 pg/mL 3 Laboratory test 02/03/2017 Surgical Pathology SEE RESULT BELOW 4 finding Laboratory test 01/28/2017 Partial Thrombo Time 27.9 seconds 26.0-36.3 finding PTT Inr/Protime 01/28/2017 Inr 0.86 Low 0.89-1.11 CKMB 01/28/2017 CKMB ng/mL 1.7 ng/mL 0.6-6.3 Laboratory test 01/28/2017 Creatine Kinase(CK) 77 U/L 10-223 finding Troponin-I (TnI) 0.01 ng/mL <0.04 5 Myoglobin 22.1 ng/mL 17.4-105.7 Comp Metabolic Panel 01/28/2017 Sodium 135 mmol/L 133-145 Potassium 4.1 mmol/L 3.5-5.0 Chloride 105 mmol/L 101-111 Co2 Carbon Dioxide 25 mmol/L 22-32 Anion Gap 5 mmol/L 2-11 Glucose 111 mg/dL High 70-100 Blood Urea Nitrogen 14 mg/dL 6-24 Creatinine 0.93 mg/dL 0.67-1.17 BUN/Creatinine Ratio 15.1 8-20 Calcium 8.8 mg/dL 8.6-10.3 Total Protein 6.7 g/dL 6.4-8.9 Albumin 4.0 g/dL 3.2-5.2 Globulin 2.7 g/dL 2-4 Albumin/Globulin Ratio 1.5 1-3 Total Bilirubin 0.60 mg/dL 0.2-1.0 Alkaline Phosphatase 54 U/L 34-104 Alt 36 U/L 7-52 Ast 29 U/L 13-39 Egfr Non- 85.0 >60 Egfr 109.3 >60 6 Laboratory test finding 01/28/2017 B-Type Natriuretic 22 pg/mL 7 Peptide BNP CBC Auto Diff 01/28/2017 White Blood Count 5.1 10^3/uL 3.5-10.8 Red Blood Count 4.81 10^6/uL 4.0-5.4 Hemoglobin 15.4 g/dL 14.0-18.0 Hematocrit 46 % 42-52 Mean Corpuscular Volume 95 fL High 80-94 Mean Corpuscular Hemoglobin 32 pg High 27-31 Mean Corpuscular HGB Conc 34 g/dL 31-36 Red Cell Distribution Width 13 % 10.5-15 Platelet Count 167 10^3/uL 150-450 Mean Platelet Volume 8 um3 7.4-10.4 Abs Neutrophils 3.0 10^3/uL 1.5-7.7 Abs Lymphocytes 1.6 10^3/uL 1.0-4.8 Abs Monocytes 0.4 10^3/uL 0-0.8 Abs Eosinophils 0.1 10^3/uL 0-0.6 Abs Basophils 0 10^3/uL 0-0.2 Abs Nucleated RBC 0 10^3/uL Granulocyte % 57.6 % 38-83 Lymphocyte % 30.7 % 25-47 Monocyte % 8.8 % 1-9 Eosinophil % 2.0 % 0-6 Basophil % 0.9 % 0-2 Nucleated Red Blood Cells % 0.1 Laboratory test finding 01/28/2017 Troponin-I (TnI) 0.01 ng/mL <0.04 8 Testosterone Free & Total 09/13/2016 Free Testosterone ng/dl 10.5 ng/dL 4.06-15.6 9 Testosterone 362 ng/dL 240-950 10 Laboratory test finding 09/13/2016 Hepatitis C Antibody Nonreactive Nonreactive HIV 1/2 AB Evaluation 09/13/2016 HIV 1 2 Antibody Nonreactive Nonreactive 11 Lipid Profile 09/13/2016 Triglycerides 134 mg/dL 12 (Trig/Chol/HDL) Cholesterol 177 mg/dL 13 HDL Cholesterol 46.6 mg/dL 14 LDL Cholesterol 104 mg/dL 15 Urinalysis Profile 09/13/2016 Urine Color Yellow Urine Appearance Clear Urine Specific [place] 1.028 1.010-1.030 Urine pH 5.0 5-9 Urine Urobilinogen Negative Negative Urine Ketones Negative Negative Urine Protein Negative Negative Urine Leukocytes Negative Negative Urine Blood 2+ Negative Urine Nitrite Negative Negative Urine Bilirubin Negative Negative Urine Glucose Negative Negative Urine White Blood Cell Absent Absent Urine Red Blood Cell 3+(>10/hpf) Absent Urine Bacteria Absent Absent Basic Metabolic Panel 09/13/2016 Sodium 135 mmol/L 133-145 Potassium 4.2 mmol/L 3.5-5.0 Chloride 104 mmol/L 101-111 Co2 Carbon Dioxide 27 mmol/L 22-32 Anion Gap 4 mmol/L 2-11 Glucose 106 mg/dL High 70-100 Blood Urea Nitrogen 13 mg/dL 6-24 Creatinine 1.00 mg/dL 0.67-1.17 BUN/Creatinine Ratio 13.0 8-20 Calcium 8.7 mg/dL 8.6-10.3 Egfr Non- 78.5 >60 Egfr 100.9 >60 16 Laboratory test finding 09/13/2016 TSH (Thyroid Stim 4.64 mcIU/mL 0.34- 5.60 17 Horm) CBC Auto Diff 09/13/2016 White Blood Count 6.1 10^3/uL 3.5-10.8 Red Blood Count 4.78 10^6/uL 4.0-5.4 Hemoglobin 15.4 g/dL 14.0-18.0 Hematocrit 46 % 42-52 Mean Corpuscular Volume 96 fL High 80-94 Mean Corpuscular Hemoglobin 32 pg High 27-31 Mean Corpuscular HGB Conc 33 g/dL 31-36 Red Cell Distribution Width 13 % 10.5-15 Platelet Count 169 10^3/uL 150-450 Mean Platelet Volume 8 um3 7.4-10.4 Abs Neutrophils 3.2 10^3/uL 1.5-7.7 Abs Lymphocytes 2.1 10^3/uL 1.0-4.8 Abs Monocytes 0.7 10^3/uL 0-0.8 Abs Eosinophils 0.1 10^3/uL 0-0.6 Abs Basophils 0 10^3/uL 0-0.2 Abs Nucleated RBC 0 10^3/uL Granulocyte % 53.2 % 38-83 Lymphocyte % 33.8 % 25-47 Monocyte % 10.7 % High 1-9 Eosinophil % 1.7 % 0-6 Basophil % 0.6 % 0-2 Nucleated Red Blood Cells % 0.1 DR Sparks's Lab Panel 12/28/2009 TSH 3.16 MIU/ML 0.34-5.60 Comp Metabolic Panel 12/28/2009 Sodium 138 mmol/L 135-145 Potassium 4.5 mmol/L 3.5-5.0 Chloride 105 mmol/L 101-111 Co2 (Carbon Dioxide) 30.0 mmol/L 22-32 Anion Gap 3.0 mmol/L 2-11 18 Glucose 79 mg/dL 70-100 19 BUN 13 mg/dL 6-24 Creatinine 0.90 mg/dL 0.50-1.40 One Over Creatinine 1.10 BUN/Creatinine Ratio 14.4 8-20 Calcium 9.2 mg/dL 8.1-9.9 20 Total Protein 6.1 GM/DL Low 6.2-8.1 Albumin 3.9 GM/DL 3.6-5.4 Globulin 2.2 GM/DL 2-4 Albumin/Globulin Ratio 1.8 1-3 Bilirubin Total 0.8 mg/dL 0.4-1.5 21 Alkaline Phosphatase 42 U/L 39-117 Alt (SGPT) 29 U/L 17-63 Ast (Sgot) 30 U/L 12-42 eGFR Non- 96.6 > 60 eGFR 116.8 > 60 22 Lipid Profile (Trig/Chol/HDL) 12/28/2009 Triglyceride 66 mg/dL 40-200 Cholesterol 156 mg/dL Less Than 200 23 High Density Lipoprotein 39 mg/dL Low 40-60 24 Cholesterol/HDL Ratio 4.00 AVERAGE 1-4.97 Low Density Lipoprotein 104 mg/dL High Less Than 100 25 CBC With Electronic Diff 12/28/2009 White Blood Count 6.0 CUMM 4.8-10.8 Red Cell Count 4.43 CUMM Low 4.6-6.2 Hemoglobin 14.5 g/dL 14.0-18.0 Hematocrit 42 % 42-52 Mean Corpuscular Volume 95 um3 High 80-94 Mean Corpuscular Hemoglob 33 pg High 27-31 Mean Corpuscular HGB Cone 35 g/dL 32-36 Redcell Distribution WDTH 12 % 10.5-15 Platelet Count 168 CUMM 150-450 Mean Platelet Volume 7.6 um3 7.4-10.4 Gran % 59.7 % 38-83 Lymph % 28.0 % 25-47 Mononuclear % 10.0 % High 1-9 Eosinophil % 1.9 % 0-6 Basophil % 0.4 % 0-2 Abs Lymphs 1.7 1.0-4.8 Abs Mononuclear 0.6 0-0.8 Absolute Neutrophil Count 3.6 1.5-7.7 Abs Eosinophils 0.1 0-0.6 Abs Basophils 0 0-0.2 1 SEE RESULT BELOW Name: KELTON JAMESAN : [address]: Hill Cisneros MD Acct: [id number] Unit: [id number] AGE: 52 Location: ED Re04/30/18 SEX: M Status: REG ER SPEC: [id number] PETE: 04/30/18-[address] [facility] [address]: Hill Cisneros MD REQ: [id number] RECD: 04/30/18 STATUS: CLARISSA MON DR: Nain Tello MD _ SOURCE: URINE SPDESC: ORDERED: Urine Culture Procedure Result Reported Site Urine Culture Final 05/01/18- 1313 ML No Growth (<1,000 CFU/mL) * ML - Main Lab . END OF REPORT DEPARTMENT OF PATHOLOGY, [address] [place] [address] Du Barron M.D. Director [facility] # [id number] 2 Please note: The following may produce a false positive D Dimer test: - Rheumatoid factor greater than 60 IU/ml - Plasma hemoglobin greater than 0.05 gm/dl - Bilirubin greater than 50 mg/dl - Lipids greater than 1000 mg/dl - FDP greater than 20 ug/ml 3 >100 to <200 pg/mL: likely compensated congestive heart failure (CHF) 200 to 400 pg/mL: likely moderate CHF >400 pg/mL: likely moderate to severe CHF 4 SEE RESULT BELOW Name: SHANELL JAMES : [address]: Kyrie Marks MD Acct: [id number] Unit: [id number] AGE: 51 Location: [facility] Re02/03/17 SEX: M Status: REG REF SPEC: [id number] PETE: 02/03/17-[address]: Kyrie Marks MD REQ: [id number] RECD: 02/03/17 STATUS: SOUT _ ORDERED: LEVEL 4 COMMENTS: [id number] FINAL DIAGNOSIS Skin, right thigh lesion, excision: -- Inflamed verrucous keratosis. CLINICAL HISTORY No history given GROSS DESCRIPTION The specimen is received in formalin labeled, Right Thigh Lesion Biopsy, and consists of a 0.6 x 0.4 cm bryan-brown oscillated skin punch excised to a depth 0.2 cm which is bisected longitudinally and entirely submitted in one cassette. Signed (signature on file) Du Barron MD 1433 END OF REPORT * ML=Testing performed at Main Lab DEPARTMENT OF PATHOLOGY, [address] [place] [address] Du Barron M.D. Director [facility] # [id number] 5 99th percentile=0.04 ng/mL Troponin results at [facility] and [facility] are not interchangeable. 6 Because ethnic data is not always readily available, this report includes an eGFR for both -Americans and non- Americans. The National Kidney Disease Education Program (NKDEP) does not endorse the use of the MDRD equation for patients that are not between the ages of 18 and 70, are , have extremes of body size, muscle mass, or nutritional status, or are non- or non-. According to the National Kidney Foundation, irrespective of diagnosis, the stage of the disease is based on the level of kidney function: Stage Description GFR(mL/min/1.73 m(2)) 1 Kidney damage with normal or decreased GFR 90 2 Kidney damage with mild decrease in GFR 60-89 3 Moderate decrease in GFR 30-59 4 Severe decrease in GFR 15-29 5 Kidney failure <15 (or dialysis) 7 >100 to <200 pg/mL: likely compensated congestive heart failure (CHF) 200 to 400 pg/mL: likely moderate CHF >400 pg/mL: likely moderate to severe CHF 8 99th percentile=0.04 ng/mL Troponin results at [facility] and [facility] are not interchangeable. 9 ADDITIONAL INFORMATION Testing performed by [facility]. This test was developed and its performance characteristics determined by [facility] in a manner consistent with CLIA requirements. This test has not been cleared or approved by the U.S. Food and Drug Administration. 10 ADDITIONAL INFORMATION Testing performed by Liquid Chromatography-Tandem Mass Spectrometry (LC-MS/MS). This test was developed and its performance characteristics determined by [facility] in a manner consistent with CLIA requirements. This test has not been cleared or approved by the U.S. Food and Drug Administration. Test Performed by: [place] [address] Transitional Nurse: Carlos Enrique Jackson II, M.D., Ph.D. 11 It is recognized that currently available assays for the detection of antibodies to HIV-1 and/or HIV-2 may not detect all infected individuals. HIV antibodies may be undetectable in some stages of the infection and in some clinical conditions. The performance of this assay has not been established for populations of infants or children. Assayed by Chemiluminescence Microparticle Immunoassay on the Siemens Advia Centaur CP. Values obtained with different methods or kits cannot be used interchangeably.The diagnostic specificity of the ADVIA Centaur 1/O/2 Enhanced assay in the low risk population was 99.90% (6052/6058) with a 95% confidence interval of 99.78 to 99.96%. 12 Desirable <150 Borderline high 150-199 High 200-499 Very High >500 13 Desirable <200 Borderline high 200-239 High >239 14 Low <40 Desirable: 40-60 High: >60 15 Desirable: <100 mg/dL Near Optimal: 100-129 mg/dL Borderline High: 130-159 mg/dL High: 160-189 mg/dL Very High: >189 mg/dL 16 Because ethnic data is not always readily available, this report includes an eGFR for both -Americans and non- Americans. The National Kidney Disease Education Program (NKDEP) does not endorse the use of the MDRD equation for patients that are not between the ages of 18 and 70, are , have extremes of body size, muscle mass, or nutritional status, or are non- or non-. According to the National Kidney Foundation, irrespective of diagnosis, the stage of the disease is based on the level of kidney function: Stage Description GFR(mL/min/1.73 m(2)) 1 Kidney damage with normal or decreased GFR 90 2 Kidney damage with mild decrease in GFR 60-89 3 Moderate decrease in GFR 30-59 4 Severe decrease in GFR 15-29 5 Kidney failure <15 (or dialysis) 17 FASTING 18 Anion gap measurement may be of limited value in the presence of any alkalosis, especially in a combined acid base disorder. . 19 Note change in reference range as of 05/05/08. The change was based on recommendations from the [place] Diabetes [employer]. 20 Please note change in reference range effective 08 . 21 A metabolite of Naproxen, O-desmethylnaproxen, has been shown to interfere with the Jendrassik-Peyton method for measuring total bilirubin. Samples from patients who have taken Naproxen have shown spurious elevation in total bilirubin levels. 22 Because ethnic data is not always readily available, this report includes an eGFR for both -Americans and non- Americans. The National Kidney Disease Education Program (NKDEP) does not endorse the use of the MDRD equation for patients that are not between the ages of 18 and 70, are , have extremes of body size, muscle mass, or nutritional status, or are non- or non-. According to the National Kidney Foundation, irrespective of diagnosis, the stage of the disease is based on the level of kidney function: Stage Description GFR(mL/min/1.73 m(2)) 1 Kidney damage with normal or decreased GFR 90 2 Kidney damage with mild decrease in GFR 60-89 3 Moderate decrease in GFR 30-59 4 Severe decrease in GFR 15-29 5 Kidney failure <15 (or dialysis) 23 CHOLESTEROL INTERPRETATION: Desirable: Less than 200 MG/DL Borderline-High Risk: 200-239 MG/DL High-Risk: 240 MG/DL and over 24 HDL INTERPRETATION: Undesirable: High Risk: Less than 40 MG/DL Desirable: Low Risk: Greater than 60 MG/DL 25 LDL INTERPRETATION: Low Risk Optimal Level: LDL Less than 100 MG/DL Near or Above Optimal: LDL 100-129 MG/DL Borderline High Risk: LDL 130-159 MG/DL High Risk: LDL 160-189 MG/DL Very High Risk: LDL Greater than 189 MG/DL Procedures Date CPT Code Description Status 02/03/2017 68415 Treadmill Interp/Report Only Completed 02/03/2017 14303 Stress Test Supervsn W/Out I/R Completed 02/03/2017 12205 Biopsy Skin Lesion Single Completed Encounters Type Date Location Provider CPT E/M Dx Office Visit 02/17/2017 [facility] [place] [address]15a [address] Traffic Control Technician Office Visit 02/05/2017 [facility] Internal Medicine Nain Tello, [address] I10 4:40p - [place] Luis Falcon,FACP R07.9 B07.9 Office Visit 02/03/2017 10:30a [facility] [place] [address] Control Technician Office Visit 01/28/2017 10:23a [facility], [place] [address] R07.9 Hospitalists I10 Office Visit 09/12/2016 1:40p Highway Traffic Control Technician Internal Nain Tello, 44294 R53.83 Medicine - [place] Luis Falcon,FACP R63.5 R05 Z11.4 Office Visit 12/28/2009 10:00a DO Not Use Highway Traffic Control Technician AT [facility], [address] 300.09 Stephania Falcon Plan of Care 06/10/2018 - Vilma Reece M.D.S23.3xxA Sprain of ligaments of thoracic spine , initial encounterNew Medication:Ibuprofen 600 mgCyclobenzaprine HCL 10 mgNew Therapy:Physical TherapyComments:continue to use heat , we discussed the muscle relaxant can cause some sedation so please take it atnight always take Ibuprofen with foodFollow up:annual physical with Dr. Tello in 1 crjubI35.9xxA Sprain of unsp parts of lumbar spine and pelvis, init encntr
--- OUTSIDE RECORDS SUMMARY | 2018-07-07 14:41 | XMS REPORT ---
:1965 External Reference #:[id number] Author Organization [facility] [employer] Address [address] [place] [address] [place] [address] Phone [phone] Care Team Providers Name Role Phone [facility] Cap Referral Line Care Team Information .Net Developer Unavailable Nain Tello MD Primary Care Physician Unavailable Payers Type Date Identification Numbers Payment Provider Subscriber Commercial Policy Number: [id number] [place] Shanell James Group Name: [id number] [address] [id number] PayID: [id number] [place] [address] Problems Date Description Provider Status Onset: 09/12/2016 [...] Marital Status Lives With 09/12/2016 Family 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 Cigarette Use Quit [...] Tablets 25mg 90tabs 1 by Nain Quesada [place], 06/10/ claudia Falcon,FACP 2017 Vital Signs Date [...] Color Yellow Urine Appearance Clear Urine Specific [place] 1.015 1.010-1.030 Urine pH 7.0 5-9 Urine [...] Color Yellow Urine Appearance Clear Urine Specific [place] 1.028 1.010-1.030 Urine pH 5.0 5-9 Urine [...] [address]: Hill Cisneros MD Acct: [id number] Unit: [id number] AGE: 52 Location: ED Re04/30/18 SEX: M Status: REG ER SPEC: [id number] PETE: 04/30/18-[address] [facility] [address]: Hill Cisneros MD REQ: [id number] RECD: 04/30/18 STATUS: CLARISSA MON DR: Nain Tello MD _ SOURCE: URINE SPDESC: ORDERED: Urine Culture Procedure Result Reported Site Urine Culture Final 05/01/18- 1313 ML No Growth (<1,000 CFU/mL) * ML - Main Lab . END OF REPORT DEPARTMENT OF PATHOLOGY, [address] [place] [address] Du Barron M.D. Director [facility] # [id number] 2 Please note: The following may produce [...] [address]: Kyrie Marks MD Acct: [id number] Unit: [id number] AGE: 51 Location: [facility] Re02/03/17 SEX: M Status: REG REF SPEC: [id number] PETE: 02/03/17-[address]: Kyrie Marks MD REQ: [id number] RECD: 02/03/17 STATUS: SOUT _ ORDERED: LEVEL 4 COMMENTS: [id number] FINAL DIAGNOSIS Skin, right thigh lesion, excision: [...] performed at Main Lab DEPARTMENT OF PATHOLOGY, [address] [place] [address] Du Barron M.D. Director [facility] # [id number] 5 99th percentile=0.04 ng/mL Troponin results at [facility] and [facility] are not interchangeable. 6 Because ethnic data [...] 8 99th percentile=0.04 ng/mL Troponin results at [facility] and [facility] are not interchangeable. 9 ADDITIONAL INFORMATION Testing performed by [facility]. This test was developed and its performance characteristics determined by [facility] in a manner consistent with CLIA requirements. This test has not been cleared or approved by the U.S. Food and Drug Administration. 10 ADDITIONAL INFORMATION Testing performed by Liquid Chromatography-Tandem Mass Spectrometry (LC-MS/MS). This test was developed and its performance characteristics determined by [facility] in a manner consistent with CLIA requirements. This test has not been cleared or approved by the U.S. Food and Drug Administration. Test Performed by: [place] [address] Patent Solicitor: Carlos Enrique Jackson II, M.D., Ph.D. 11 [...] change was based on recommendations from the [place] Diabetes [employer]. 20 Please note change in [...] Procedures Date CPT Code Description Status 02/03/2017 16294 Treadmill Interp/Report Only Completed 02/03/2017 86765 Stress Test Supervsn W/Out I/R Completed 02/03/2017 57705 Biopsy Skin Lesion Single Completed Encounters Type Date Location Provider CPT E/M Dx Office Visit 02/17/2017 [facility] [place] [address] L98.9 10:15a Manager Talent Office Visit 02/05/2017 [facility] Internal Medicine Nain Tello, [address] I10 4:40p - [place] Luis Falcon,FACP R07.9 B07.9 Office Visit 02/03/2017 10:30a [facility] [place] [address] L98.9 Manager Talent Office Visit 01/28/2017 10:23a [facility], [place] [address] R07.9 Hospitalists I10 Office Visit 09/12/2016 1:40p Manager Talent Internal Nain Tello, 576[address] R53.83 Medicine - [place] Luis Falcon,FACP R63.5 R05 Z11.4 Office Visit 12/28/2009 10:00a DO Not Use Manager Talent AT [facility], [address] 300.09 Stephania Falcon Plan of Care 06/10/2018 - Vilma Reece M.D.S23.3xxA Sprain of ligaments of thoracic spine , initial encounterNew Medication:Ibuprofen 600 mgCyclobenzaprine HCL 10 mgNew Therapy:Physical TherapyComments:continue to use heat , we discussed the muscle relaxant can cause some sedation so please take it atnight always take Ibuprofen with foodFollow up:annual physical with Dr. Tello in 1 veufhA45.9xxA Sprain of unsp parts of lumbar spine and pelvis, init encntr
[2018-07-07 17:01] LABS: ABS Basophils 0.1 10^3/ul (0-0.2); ABS Eosinophils 0.1 10^3/ul (0-0.6); ABS Lymphocytes 2.1 10^3/ul (1.0-4.8); ABS Monocytes 0.8 10^3/ul (0-0.8); ABS Neutrophils 5.4 10^3/ul (1.5-7.7); ABS Nucleated RBC 0 10^3/ul; Eosinophil % 1.5 % (0-6); Hematocrit 45 % (42-52); Hemoglobin 16.1 g/dl (14.0-18.0); Lymphocyte % 24.7 % (25-47); Mean Corpuscular HGB Conc 36 g/dl (31-36); Mean Corpuscular Hemoglobin 34 pg (27-31); Mean Corpuscular Volume 94 fL (80-94); Mean Platelet Volume 7.5 um3 (7.4-10.4); Nucleated Red Blood Cells % 0.2; Platelet Count 164 10^3/ul (150-450); Red Blood Count 4.79 10^6/ul (4.00-5.40); Red Cell Distribution Width 13 % (10.5-15); White Blood Count 8.5 10^3/ul (3.5-10.8)
[2018-07-07 17:11] LABS: EGFR Non-African American 96.5 (>60)
--- NOTE | 2018-07-07 17:17 | ED ---
Back Pain - HPI Summary HPI Summary: Patient presents with acute on chronic back pain. He admits he's had central lower back pain over the past month which is been getting progressively worse. Today he had radiculopathy into the left lower extremity for the first time. Reports he was seen last week at an urgent care by Dr. Barry and was prescribed some medications (ibuprofen and Flexeril possibly?) Which did not help his pain. He did not have any imaging at that time. He has had issues with his back on and off over the past few years and was seen at [facility] last year. Again he received anti-inflammatories but no imaging. He does not follow with his PCP job all needed hasn't seen him in quite a few years. He denies fevers chills numbness tingling or weakness however pain in his back and legs are worse when he tries to flex at the hips or move his left lower extremity. He admits to difficulty especially in the morning with waking and getting out of bed. He is stiff and has a lot of pain. Sometimes he has to get down on all fours and then has difficult time standing. He reports he would not have made it into the hospital today if his female form worker had not brought him here. He denies bladder or bowel incontinence however he does admit he's had left lower quadrant abdominal pain with bowel urgency. This morning, he also admits to nausea with dry heaves. He is not sure if this were from abdominal pain or back pain. Denies fever, chills, chest pain, shortness of breath, upper back pain, cough. He works at a [employer] and is on his feet for many hours today as well as lifting heavy bins, etc. He is concerned not only about his back pain but also about his abdominal pain and GI symptoms. Denies hematochezia and melena. - History of Current Complaint Chief Complaint: EDBackInjuryPain Stated Complaint: BACK PAIN Time Seen by Provider: 07/07/18 15:36 Hx Obtained From: Patient, Family/Brand Designer - female form worker Pain Intensity: 10 - Allergies/Home Medications Allergies/Adverse Reactions: Allergies Allergy/AdvReac Type Severity Reaction Status Date / Time No Known Allergies Allergy Verified 07/07/18 14:37 PMH/Surg Hx/FS Hx/Imm Hx Previously Healthy: Yes Endocrine/Hematology History: Denies: Hx Anticoagulant Therapy, Hx Diabetes, Hx Thyroid Disease Cardiovascular History: Reports: Hx Angina, Hx Hypertension Denies: Hx Congestive Heart Failure, Hx Coronary Artery Disease, Hx Deep Vein Thrombosis, Hx Hypercholesterolemia, Hx Myocardial Infarction, Hx Pacemaker /ICD, Hx Valvular Heart Disease Respiratory History: Denies: Hx Asthma, Hx Chronic Obstructive Pulmonary Disease (COPD), Hx Lung Cancer, Hx Pneumonia, Hx Pulmonary Embolism GI History: Denies: Hx Cirrhosis, Hx Crohn's Disease, Hx Diverticulosis, Hx Gall Bladder Disease, Hx Gastroesophageal Reflux Disease, Hx Gastrointestinal Bleed, Hx Hiatal Hernia, Hx Irritable Bowel, Hx Obstructive Bowel, Hx Ulcer, Hx Urosepsis History: Denies: Hx Kidney Stones, Hx Renal Disease Musculoskeletal History: Reports: Hx Back Problems - chronic pain w/ intermittent acute attacks - no imaging to date Neurological History: Denies: Hx Dementia, Hx Migraine, Hx Seizures, Hx Transient Ischemic Attacks (TIA) Psychiatric History: Denies: Hx Anxiety, Hx Depression, Hx Schizophrenia, Hx Bipolar Disorder Infectious Disease History: No Infectious Disease History: Denies: Hx Clostridium Difficile, Hx Hepatitis, Hx Human Immunodeficiency Virus (HIV), Hx of Known/Suspected MRSA, Hx Shingles, Hx Tuberculosis, Hx Known/ Suspected VRE, Hx Known/Suspected VRSA, History Other Infectious Disease, Traveled Outside the [place] in Last 30 Days - Family History Known Family History: Positive: Renal Disease Negative: Cardiac Disease, Hypertension - Social History Occupation: Employed Full-time - works at a [employer]: With Family Alcohol Use: Daily Alcohol Amount: last drink was one week ago Hx Substance Use: No Substance Use Type: Reports: None Hx Tobacco Use: Yes Smoking Status (MU): Current Some Day Smoker Amount Used/How Often: 1/2ppd or less Review of Systems Constitutional: Negative Negative: Fever, Chills, Fatigue Cardiovascular: Negative Negative: Palpitations, Chest Pain Respiratory: Negative Negative: Shortness Of Breath, Cough Positive: Abdominal Pain, Diarrhea, Nausea Genitourinary: Negative Positive: Arthralgia, Myalgia, Decreased ROM - LLE d/t pain Skin: Negative Neurological: Negative Positive: Anxious All Other Systems Reviewed And Are Negative: Yes Physical Exam Triage Information Reviewed: Yes Vital Signs On Initial Exam: Initial Vitals Temp Pulse Resp BP Pulse Ox 97.8 F 83 18 149/73 100 07/07/18 14:35 10/23/18 14:35 07/07/18 14:35 07/07/18 14:35 07/07/18 14:35 Vital Signs Reviewed: Yes Appearance: Positive: Well-Appearing, Pain Distress, Obese Skin: Positive: Warm, Skin Color Reflects Adequate Perfusion, Dry Head/Face: Positive: Normal Head/Face Inspection Eyes: Positive: Normal, EOMI, Conjunctiva Clear - anicteric sclera ENT: Positive: Normal ENT inspection, Hearing grossly normal, Pharynx normal - mucosa moist Neck: Positive: Supple Respiratory/Lung Sounds: Positive: Breath Sounds Present Cardiovascular: Positive: Normal Abdomen Description: Positive: Distended - firm abdomen, vast girth (difficult to assess if this is baseline or pathological) Bowel Sounds: Positive: Present Musculoskeletal: Positive: Pain @, Other - + SLR on Lt; SLR on Rt illicits pain in LT Low back Neurological: Positive: Normal, Sensory/Motor Intact, Alert, Oriented to Person Place, Time, CN Intact II-III, Other - rectal tone intact - no saddle paresthesia Psychiatric: Positive: Anxious - concerned about pain and sx Diagnostics - Vital Signs Vital Signs Temp Pulse Resp BP Pulse Ox 07/07/18 17:07 16 07/07/18 14:35 97.8 F 83 18 149/73 100 - Laboratory Lab Results: Lab Results 07/07/18 07/07/18 Range/Units 16:44 16:44 WBC 8.5 (3.5-10.8) 10^3/ul RBC 4.79 (4.00-5.40) 10^6/ul Hgb 16.1 (14.0-18.0) g/dl Hct 45 (42-52) % MCV 94 (80-94) fL MCH 34 H (27-31) pg MCHC 36 (31-36) g/dl RDW 13 (10.5-15) % Plt Count 164 (150-450) 10^3/ul MPV 7.5 (7.4-10.4) um3 Neut % (Auto) 63.5 (38-83) % Lymph % (Auto) 24.7 L (25-47) % Blanco % (Auto) 9.5 H (0-7) % Eos % (Auto) 1.5 (0-6) % Baso % (Auto) 0.8 (0-2) % Absolute Neuts (auto) 5.4 (1.5-7.7) 10^3/ul Absolute Lymphs (auto) 2.1 (1.0-4.8) 10^3/ul Absolute Monos (auto) 0.8 (0-0.8) 10^3/ul Absolute Eos (auto) 0.1 (0-0.6) 10^3/ul Absolute Basos (auto) 0.1 (0-0.2) 10^3/ul Absolute Nucleated RBC 0 10^3/ul Nucleated RBC % 0.2 Sodium 136 (135-145) mmol/L Potassium 4.3 (3.5-5.0) mmol/L Chloride 106 (101-111) mmol/L Carbon Dioxide 24 (22-32) mmol/L Anion Gap 6 (2-11) mmol/L BUN 12 (6-24) mg/dL Creatinine 0.83 (0.67-1.17) mg/dL Est GFR ( Amer) 116.8 (>60) Est GFR (Non-Af Amer) 96.5 (>60) BUN/Creatinine Ratio 14.5 (8-20) Glucose 91 (70-100) mg/dL Calcium 9.1 (8.6-10.3) mg/dL Magnesium 2.0 (1.9-2.7) mg/dL Total Bilirubin 0.60 (0.2-1.0) mg/dL AST 25 (13-39) U/L ALT 34 (7-52) U/L Alkaline Phosphatase 48 (34-104) U/L C-Reactive Protein < 1.00 (<8.01) mg/L Total Protein 7.1 (6.4-8.9) g/dL Albumin 4.2 (3.2-5.2) g/dL Globulin 2.9 (2-4) g/dL Albumin/Globulin Ratio 1.4 (1-3) Lipase 33 (11.0-82.0) U/L Result Diagrams: 07/07/18 16:44 07/07/18 16:44 Lab Statement: Any lab studies that have been ordered have been reviewed, and results considered in the medical decision making process. Re-Evaluation - Re-Evaluation First Eval Change: Improved - Rt LBP improved w/ IV morphine however he still has Lt LBP. CT ab/pelvis does not reveal acute GI/ pathology and CT lumbar spine reveals multi-level DDD w/ stenosis. Will try seroid, NSAID and muscle relaxer for pain relief. Back Pain Course/Dx - Course Course Of Treatment: Pt had complaints within JAMES LBP and GI issues (urgency w/ frequency when home from work -does not have this at work). Also has urinary urgency - no stacey incontinence of either. CT ab/pelvis was w/o acute findings but did find an enlarged prostate - discussed w/ pt who will f/u w/ PCP. CT lumbar spine correlates w/ sx he's having of lumbar radiculopathy. Will trial IV steroid, NSAID and muscle relaxer. If pain and function continue to be limited, may benefit from admission for pain control and MRI w/neurosurg consult as he has moderate canal stenosis on CT. If improves, recommend outpt meds for control of sx (prednisone 60mg daily x 5 days, ibuprofen 800mg every 8 hrs and diazepam for muscle relaxtion) , close f/u w/ [facility] this week and out of work until cleared to return. Pt will most likely benefit from MRI outpt as well given the extent of his pathology and sx here tonight. He reports an urgent care provider rx'd PT for him last week - advised to refrain from PT until cleared by [facility] if appropriate. Pt and partner agree w/ plan. Also reviewed danger s/sx of when to return to ED. SIgned out to Tawnya Velazco PA-C in stable condition and pending pain control, improved function to go home. Again, if he is unable to attain these goals, may benefit from admission as he has had 3 IV pain meds and 1 PO. - Diagnoses Provider Diagnoses: Lumbar radiculopathy, Enlarged prostate, Lumbar spinal stenosis, Lumbar foraminal stenosis Discharge - Sign-Out/Discharge Documenting (check all that apply): Sign-Out Patient Signing out patient TO: Abby Velazco - Discharge Plan Condition: Stable - Billing Disposition and Condition Condition: STABLE
--- NOTE | 2018-07-07 17:53 | RAD ---
CLINICAL HISTORY: LLQ AB PAIN + lumbar radiculopathy COMPARISON: None TECHNIQUE: Multiple contiguous axial CT scans were obtained of the abdomen and pelvis after the administration of intravenous contrast. Coronal and sagittal multiplanar reformations are submitted for review. Oral contrast was not administered. Delayed images were obtained through the abdomen. FINDINGS: LUNG BASES: The lung bases are clear. LIVER: The liver is normal in shape, size, contour, and attenuation. BILE DUCTS: There is no intrahepatic or extrahepatic biliary dilatation. GALLBLADDER: The gallbladder is normal, without pericholecystic inflammatory change. PANCREAS: The pancreas is normal, without mass or ductal dilatation. SPLEEN: Normal in size and appearance. UPPER GI TRACT: Evaluation of the gastrointestinal tract is limited by incomplete gastric distention. The upper GI tract is unremarkable. SMALL BOWEL AND MESENTERY: There is mild distention of loops of small bowel within the upper abdomen without clear transition point or dilatation. COLON: The colon is normal in contour, course, caliber. There is no pericolonic inflammatory change. ADRENALS: Normal bilaterally. KIDNEYS: The kidneys are normal in shape, size, contour, and axis. There is no hydronephrosis or nephrolithiasis. BLADDER: The bladder is smooth in contour. PELVIC ORGANS: The prostate is diffusely enlarged. The seminal vesicles are symmetric. AORTA: The aorta is normal. IVC: Unremarkable LYMPH NODES: There is no lymphadenopathy by size criteria. ABDOMINAL WALL: There is a fat-containing left inguinal hernia. BONES AND SOFT TISSUES: There are mild diffuse degenerative changes. OTHER: None IMPRESSION: ENLARGED PROSTATE. MILDLY DISTENDED LOOPS OF SMALL BOWEL WITHIN THE UPPER ABDOMEN WITHOUT DILATATION NO ACUTE CT PATHOLOGY OF THE VISUALIZED ABDOMEN AND PELVIS.
--- NOTE | 2018-07-07 18:01 | RAD ---
HISTORY: Lt lumbar radiculopathy COMPARISONS: None TECHNIQUE: Multiple contiguous axial CT scans were obtained of the lumbar spine with intravenous contrast, with coronal and sagittal multiplanar reformations. FINDINGS: SPINAL CANAL: Evaluation of the central canal is limited on CT technique; however, there is no obvious canalicular mass or epidural hemorrhage. ALIGNMENT: There is straightening of the lumbar lordosis. VERTEBRAL BODIES: There is anterolateral marginal osteophyte formation. The vertebral bodies are preserved in height. There is diffuse fusiform narrowing of central canal secondary to congenitally short pedicles. JOINTS: There is no subluxation or dislocation. MUSCULATURE: Unremarkable INTERVERTEBRAL DISCS: There is diffuse loss of intervertebral disc height throughout the spine. AXIAL IMAGES: T12-L1: There is no osseous neural foraminal narrowing or central canal stenosis. L1-L2: There is no osseous neural foraminal narrowing or central canal stenosis. L2-L3: There is no osseous neural foraminal narrowing or central canal stenosis. L3-L4: There is no osseous neural foraminal narrowing or central canal stenosis. L4-L5: There is mild ligamentous hypertrophy. There is mild bilateral neuroforaminal narrowing. There is moderate narrowing of central canal. L5-S1: There is a mild disc bulge with ligamentous hypertrophy. There is mild narrowing of the central canal. There is no osseous neural foraminal narrowing. SOFT TISSUES: The visualized soft tissues of the abdomen are unremarkable. OTHER: None IMPRESSION: 1. DEGENERATIVE DISC DISEASE. 2. DIFFUSE FUSIFORM NARROWING OF THE CENTRAL CANAL SECONDARY TO CONGENITALLY SHORT PEDICLES. 3. THERE IS MORE FOCAL MODERATE NARROWING OF THE CENTRAL CANAL AT L4-L5 WITH MILD NARROWING AT L5-S1. 4. THERE IS NEURAL FORAMINAL NARROWING AT L4-L5.
[2018-07-07 18:25] LABS: Urine Appearance Clear; Urine Blood 1+ (Negative); Urine Color Yellow; Urine Ketones Negative (Negative); Urine Protein Negative (Negative); Urine Red Blood Cell 2+(6-10/hpf) (Absent); Urine Specific Gravity 1.055 (1.010-1.030); Urine Urobilinogen Negative (Negative); Urine White Blood Cell Absent (Absent)
--- NOTE | 2018-07-07 19:48 | ED ---
Progress - Progress Note Progress Note: patient signed out by jaylin pending pain control patient was re-evaluated at 19:45 and was able to move around the bed well and ambulated to the bathroom earlier. patient states pain is improved. discussed discharge plan that should follow up with [facility] and will give muscle relaxer. Re-Evaluation - Re-Evaluation First Eval Change: Improved - Rt LBP improved w/ IV morphine however he still has Lt LBP. CT ab/pelvis does not reveal acute GI/ pathology and CT lumbar spine reveals multi-level DDD w/ stenosis. Will try seroid, NSAID and muscle relaxer for pain relief. Course/Dx - Course Course Of Treatment: Pt had complaints within [facility]AMES LBP and GI issues (urgency w/ frequency when home from work -does not have this at work). Also has urinary urgency - no stacey incontinence of either. CT ab/pelvis was w/o acute findings but did find an enlarged prostate - discussed w/ pt who will f/u w/ PCP. CT lumbar spine correlates w/ sx he's having of lumbar radiculopathy. Will trial IV steroid, NSAID and muscle relaxer. If pain and function continue to be limited, may benefit from admission for pain control and MRI w/neurosurg consult as he has moderate canal stenosis on CT. If improves, recommend outpt meds for control of sx (prednisone 60mg daily x 5 days, ibuprofen 800mg every 8 hrs and diazepam for muscle relaxtion) , close f/u w/ [facility] this week and out of work until cleared to return. Pt will most likely benefit from MRI outpt as well given the extent of his pathology and sx here tonight. He reports an urgent care provider rx'd PT for him last week - advised to refrain from PT until cleared by [facility] if appropriate. Pt and partner agree w/ plan. Also reviewed danger s/sx of when to return to ED. SIgned out to Tawnya Velazco PA-C in stable condition and pending pain control, improved function to go home. patient is in good enough pain control that can go home. told to follow up with [facility]. patient understand and agrees with plan. - Diagnoses Provider Diagnoses: Lumbar radiculopathy, Enlarged prostate, Lumbar spinal stenosis, Lumbar foraminal stenosis Discharge - Sign-Out/Discharge Documenting (check all that apply): Patient Departure, Receiving Sign-Out Receiving patient FROM: Jaylin Narciso - Discharge Plan Condition: Good Disposition: HOME Prescriptions: Ibuprofen TAB* [Motrin TAB* 800 MG] 800 mg PO Q6H #20 tab Methocarbamol TAB* [Robaxin 500 MG TAB*] 750 mg PO TID PRN #21 tab PRN Reason: Pain predniSONE TAB* [Deltasone TAB*] 50 mg PO DAILY #5 tab Patient Education Materials: Back Pain (ED) Forms: *Work Release Referrals: Nain Tello MD [Primary Care Provider] - [facility] [Outside] Cesar Mendez MD [Medical Doctor] - Additional Instructions: Take muscle relaxers three times a day take prednisone once a day for 5 days Use ibuprofen or Tylenol for pain every 6 hours ice/heat area, move as much as possible Follow up with [facility] this week referral to ortho given Return to ED if develop any new or worsening symptoms - Billing Disposition and Condition Condition: GOOD Disposition: Home
[2018-07-07 20:09] VITALS: BP 131/97
== END | disposition home or self-care (01) ==
LOC: ED 14:34
DX: M54.16 Radiculopathy, lumbar region (principal); I10 Essential (primary) hypertension; N40.0 Benign prostatic hyperplasia without lower urinary tract symptoms; M48.061 Spinal stenosis, lumbar region without neurogenic claudication
CPT/HCPCS: 36415; 72132; 74177; 80053; 81003; 81015; 83605; 83690; 83735; 85025; 86140; 96374; 96375; 99282; A9270-GY; J1885; J2270; J2405; J2920; Q9967

== ENCOUNTER 2019-08-29 17:26 | Emergency (ER) | payer OTHER ==
[2019-08-29] MEDS ORDERED: Diazepam TAB(*) 5 MG PO ONE ×2 (17:43→19:27)
[2019-08-29] MEDS ORDERED: Ketorolac INJ* 30 MG/ML 1 ML VIAL IM ONE (17:44)
--- NOTE | 2019-08-29 17:45 | ED ---
Back Pain - HPI Summary HPI Summary: Patient complains of right-sided back pain status post mechanical fall last night. Patient states he slipped on ice and fell down 3 stairs onto his back. Denies head injury, LOC, NEWMAN, bleeding, SOB, any other pain injury or symptoms. No anti-coagulation. Pain is worse with movement, inhalation, cough. Patient took Tylenol this morning with no relief. Patient is ambulatory with pain. - History of Current Complaint Chief Complaint: EDFall Stated Complaint: INJURIES FROM FALL DOWN STAIRS PER PT Time Seen by Provider: 08/29/19 17:38 Hx Obtained From: Patient Onset/Duration: Sudden Onset, Lasting Hours Onset/Duration: Started Hours Ago Timing: Constant Back Pain Location: Is Discrete @ Severity Initially: Severe Severity Currently: Severe Pain Intensity: 10 Pain Scale Used: 0-10 Numeric Character: Sharp, Aching, Throbbing Aggravating Symptom(s): Movement, Walking, Cough Alleviating Symptom(s): Rest, Position Associated Signs And Symptoms: Positive: Negative - Allergies/Home Medications Allergies/Adverse Reactions: Allergies Allergy/AdvReac Type Severity Reaction Status Date / Time egg Allergy GI Upset Verified 08/29/19 18:25 milk Allergy Diarrhea Verified 08/29/19 18:25 PMH/Surg Hx/FS Hx/Imm Hx Endocrine/Hematology History: Denies: Hx Anticoagulant Therapy, Hx Diabetes, Hx Thyroid Disease Cardiovascular History: Reports: Hx Angina, Hx Hypertension Denies: Hx Congestive Heart Failure, Hx Coronary Artery Disease, Hx Deep Vein Thrombosis, Hx Hypercholesterolemia, Hx Myocardial Infarction, Hx Pacemaker /ICD, Hx Valvular Heart Disease Respiratory History: Denies: Hx Asthma, Hx Chronic Obstructive Pulmonary Disease (COPD), Hx Lung Cancer, Hx Pneumonia, Hx Pulmonary Embolism GI History: Denies: Hx Cirrhosis, Hx Crohn's Disease, Hx Diverticulosis, Hx Gall Bladder Disease, Hx Gastroesophageal Reflux Disease, Hx Gastrointestinal Bleed, Hx Hiatal Hernia, Hx Irritable Bowel, Hx Obstructive Bowel, Hx Ulcer, Hx Urosepsis History: Denies: Hx Kidney Stones, Hx Renal Disease Musculoskeletal History: Reports: Hx Back Problems - chronic pain w/ intermittent acute attacks - no imaging to date Sensory History: Denies: Hx Eye Prosthesis Opthamlomology History: Denies: Hx Legally Blind EENT History: Denies: Hx Deafness Neurological History: Denies: Hx Dementia, Hx Migraine, Hx Seizures, Hx Transient Ischemic Attacks (TIA) Psychiatric History: Denies: Hx Anxiety, Hx Depression, Hx Schizophrenia, Hx Bipolar Disorder Infectious Disease History: No Infectious Disease History: Denies: Hx Clostridium Difficile, Hx Hepatitis, Hx Human Immunodeficiency Virus (HIV), Hx of Known/Suspected MRSA, Hx Shingles, Hx Tuberculosis, Hx Known/ Suspected VRE, Hx Known/Suspected VRSA, History Other Infectious Disease, Traveled Outside the [place] in Last 30 Days - Family History Known Family History: Positive: Renal Disease Negative: Cardiac Disease, Hypertension - Social History Alcohol Use: Daily Alcohol Amount: last drink was one week ago Hx Substance Use: No Substance Use Type: Reports: None Hx Tobacco Use: Yes Smoking Status (MU): Current Some Day Smoker Amount Used/How Often: 1/2ppd or less Review of Systems Constitutional: Negative Eyes: Negative ENT: Negative Cardiovascular: Negative Respiratory: Negative Gastrointestinal: Negative Genitourinary: Negative Musculoskeletal: Other Skin: Negative Neurological: Negative Psychological: Normal All Other Systems Reviewed And Are Negative: Yes Physical Exam - Summary Physical Exam Summary: Mild ecchymosis and tenderness to right upper back. No deformity, erythema, noticed. No bony point tenderness along the entire spine. Full range of motion of jaw and neck. Triage Information Reviewed: Yes Vital Signs On Initial Exam: Initial Vitals Temp Pulse Resp BP Pulse Ox 97.4 F 73 14 128/88 99 08/29/19 17:29 08/29/19 17:29 08/29/19 17:29 08/29/19 17:29 08/29/19 17:29 Vital Signs Reviewed: Yes Appearance: Positive: Well-Appearing Skin: Positive: Warm Head/Face: Positive: Normal Head/Face Inspection Eyes: Positive: Normal Dental: Negative: Dental Fracture @, Bleeding Neck: Positive: Supple Respiratory/Lung Sounds: Positive: Clear to Auscultation Cardiovascular: Positive: Normal Abdomen Description: Positive: Nontender Musculoskeletal: Positive: Normal Neurological: Positive: Normal Psychiatric: Positive: Normal AVPU Assessment: Alert - [place] Coma Scale Best Eye Response: 4 - Spontaneous Best Motor Response: 6 - Obeys Commands Best Verbal Response: 5 - Oriented Coma Scale Total: 15 Procedures - Sedation Patient Received Moderate/Deep Sedation with Procedure: No Diagnostics - Vital Signs Vital Signs Temp Pulse Resp BP Pulse Ox 08/29/19 17:29 97.4 F 73 14 128/88 99 - Laboratory Lab Statement: Any lab studies that have been ordered have been reviewed, and results considered in the medical decision making process. Back Pain Course/Dx - Course Course Of Treatment: Patient complains of right-sided back pain status post mechanical fall last night. Patient states he slipped on ice and fell down 3 stairs onto his back. Denies head injury, LOC, NEWMAN, bleeding, SOB, any other pain injury or symptoms. No anti-coagulation. Pain is worse with movement, inhalation, cough. Patient took Tylenol this morning with no relief. Patient is ambulatory with pain. Vital signs within normal limits. X-ray of ribs negative for fracture. - Diagnoses Provider Diagnoses: Injury of back due to fall, Muscle spasm Discharge ED - Sign-Out/Discharge Documenting (check all that apply): Patient Departure - Discharge Plan Condition: Stable Disposition: HOME Prescriptions: Diazepam TAB(*) [Valium TAB(*)] 5 mg PO TID PRN 2 Days #6 tab MDD 3 tabs PRN Reason: Spasms Lidocaine PATCH 5%* [Lidoderm 5% Patch*] 1 patch TRANSDERM DAILY 4 Days #4 patch Patient Education Materials: Back Pain (ED) Forms: *Work Release Referrals: Jessica Henning MD [Primary Care Provider] - Additional Instructions: Used lidocaine patches as directed for back pain. Take Valium for muscle spasm as directed. Take ibuprofen 600 mg every 6 hours for inflammation. Return to the ED for any new or worsening symptoms. - Billing Disposition and Condition Condition: STABLE Disposition: Home
[2019-08-29] MEDS ORDERED: Lidocaine PATCH 5%* 1 PATCH TRANSDERM SCH (18:00)
[2019-08-29 19:36] VITALS: BP 153/85
[2019-08-29] MEDS ORDERED: Lidocaine Patch REMOVE* 1 NOTE MISC SCH (21:00)
== END 2019-08-29 19:32 | disposition home or self-care (01) ==
LOC: ED 17:26
DX: S29.9XXA Unspecified injury of thorax, initial encounter (principal); W00.1XXA Fall from stairs and steps due to ice and snow, initial encounter; Y92.9 Unspecified place or not applicable; M62.838 Other muscle spasm; Z72.0 Tobacco use; I10 Essential (primary) hypertension
CPT/HCPCS: 96372; 99282; A9270-GY; J1885

== ENCOUNTER 2019-10-30 14:39 | Emergency (ER) | payer OTHER ==
[2019-10-30 14:44] VITALS: BP 176/87
--- NOTE | 2019-10-30 15:23 | ED ---
Upper Extremity Pain - HPI Summary HPI Summary: This pt is a 53 Y/O M presenting to [facility] with a CC of L wrist pain that occurred after slipping on ice while taking out trash prior to arrival. He states that the pain is rated an 8/10 in severity and currently has swelling and pain with ROM. He states that he landed on an outstretched L hand. He denies any numbness or tingling, headaches, neck pain, shoulder pain, and CP. He has no pertinent PMHx. He has no alleviating factors and states that the pain is increased with movement of his wrist and hand. - History of Current Complaint Chief Complaint: EDExtremityUpper Stated Complaint: FALL/LEFT HAND INJURY PER PT Time Seen by Provider: 10/30/19 15:11 Hx Obtained From: Patient Mechanism Of Injury: Fall From A Standing Position Onset/Duration: Started Minutes Ago - [employer], Still Present Timing: Constant, Lasting Minutes - [employer] Severity Initially: Severe Severity Currently: Severe - 8/10 Pain Location: Wrist - L Aggravating Factor(s): Movement Alleviating Factor(s): Nothing Associated Signs & Symptoms: Positive: Negative - shoulder pain, headaches, Swelling. Negative: Numbness/Tingling, Chest Pain, Neck Pain - Allergies/Home Medications Allergies/Adverse Reactions: Allergies Allergy/AdvReac Type Severity Reaction Status Date / Time egg Allergy GI Upset Verified 08/29/19 18:25 milk Allergy Diarrhea Verified 08/29/19 18:25 PMH/Surg Hx/FS Hx/Imm Hx Previously Healthy: Yes Endocrine/Hematology History: Denies: Hx Anticoagulant Therapy, Hx Diabetes, Hx Thyroid Disease Cardiovascular History: Reports: Hx Angina, Hx Hypertension Denies: Hx Congestive Heart Failure, Hx Coronary Artery Disease, Hx Deep Vein Thrombosis, Hx Hypercholesterolemia, Hx Myocardial Infarction, Hx Pacemaker /ICD, Hx Valvular Heart Disease Respiratory History: Denies: Hx Asthma, Hx Chronic Obstructive Pulmonary Disease (COPD), Hx Lung Cancer, Hx Pneumonia, Hx Pulmonary Embolism GI History: Denies: Hx Cirrhosis, Hx Crohn's Disease, Hx Diverticulosis, Hx Gall Bladder Disease, Hx Gastroesophageal Reflux Disease, Hx Gastrointestinal Bleed, Hx Hiatal Hernia, Hx Irritable Bowel, Hx Obstructive Bowel, Hx Ulcer, Hx Urosepsis History: Denies: Hx Kidney Stones, Hx Renal Disease Musculoskeletal History: Reports: Hx Back Problems - chronic pain w/ intermittent acute attacks - no imaging to date Sensory History: Denies: Hx Eye Prosthesis, Hx Legally Blind, Hx Deafness Opthamlomology History: Denies: Hx Eye Prosthesis, Hx Legally Blind Neurological History: Denies: Hx Dementia, Hx Migraine, Hx Seizures, Hx Transient Ischemic Attacks (TIA) Psychiatric History: Denies: Hx Anxiety, Hx Depression, Hx Schizophrenia, Hx Bipolar Disorder - Cancer History Hx Chemotherapy: No Hx Radiation Therapy: No - Surgical History Surgical History: None - Immunization History Immunizations Up to Date: Yes Infectious Disease History: No Infectious Disease History: Denies: Hx Clostridium Difficile, Hx Hepatitis, Hx Human Immunodeficiency Virus (HIV), Hx of Known/Suspected MRSA, Hx Shingles, Hx Tuberculosis, Hx Known/ Suspected VRE, Hx Known/Suspected VRSA, History Other Infectious Disease, Traveled Outside the [place] in Last 30 Days - Family History Known Family History: Positive: Renal Disease Negative: Cardiac Disease, Hypertension - Social History Occupation: Employed Full-time Lives: With Family Alcohol Use: Daily Alcohol Amount: last drink was one week ago Hx Substance Use: No Substance Use Type: Reports: None Hx Tobacco Use: Yes Smoking Status (MU): Current Some Day Smoker Amount Used/How Often: 1/2ppd or less Review of Systems ENT: Negative - neck pain Negative: Chest Pain Musculoskeletal: Negative - L shoulder pain Positive: Other - L wrist pain with associated swelling Neurological/Mental Status: Negative - tingling Negative: Headache, Numbness All Other Systems Reviewed And Are Negative: Yes Physical Exam - Summary Physical Exam Summary: Constitutional: Well-developed, Well-nourished, Alert. (-) Distressed Skin: Warm, Dry HENT: Normocephalic; Atraumatic Eyes: Conjunctiva normal Neck: Musculoskeletal ROM normal neck. (-) JVD, (-) Stridor, (-) Tracheal deviation Cardio: Rhythm regular, rate normal, Heart sounds normal; Intact distal pulses; The pedal pulses are 2+ and symmetric. Radial pulses are 2+ and symmetric. (-) Murmur Pulmonary/Chest wall: Effort normal. (-) Respiratory distress, (-) Wheezes, (-) Rales Abd: Soft, (-) tenderness, (-) Distension, (-) Guarding, (-) Rebound Musculoskeletal: (-) Edema, L hand tender over base of 4th and 5th metacarpals and distal radius. Slight swelling, no gross deformity. N/V interact. Lymph: (-) Cervical adenopathy Neuro: Alert, Oriented x3 Psych: Mood and affect Normal Triage Information Reviewed: Yes Vital Signs On Initial Exam: Initial Vitals Temp Pulse Resp BP Pulse Ox 97.0 F 77 19 176/87 99 10/30/19 14:41 10/30/19 14:41 10/30/19 14:41 10/30/19 14:41 10/30/19 14:41 Vital Signs Reviewed: Yes Procedures - Sedation Patient Received Moderate/Deep Sedation with Procedure: No Diagnostics - Vital Signs Vital Signs Temp Pulse Resp BP Pulse Ox 10/30/19 14:41 97.0 F 77 19 176/87 99 - Laboratory Lab Statement: Any lab studies that have been ordered have been reviewed, and results considered in the medical decision making process. - Radiology Hand X-Ray Radiology Interpretation Completed By: Radiologist Summary of Radiographic Findings: No fracture of the left hand is noted. ED physician has reviewed this report. Course/Dx - Course Course Of Treatment: This pt is a 53 Y/O M presenting to [facility] with a CC of L wrist pain that occurred after slipping on ice while taking out trash prior to arrival. He states that the pain is rated an 8/10 in severity and currently has swelling and pain with ROM. He states that he landed on an outstretched L hand. He denies any numbness or tingling, headaches, neck pain, shoulder pain, and CP. He has no pertinent PMHx. He has no alleviating factors and states that the pain is increased with movement of his wrist and hand. His PE found the following: L hand tender over base of 4th and 5th metacarpals and distal radius. Slight swelling, no gross deformity. N/V interact. His Hand X-Ray shows No fracture of the left hand is noted. Wrist X-Ray: NO FRACTURE OF THE WRIST IS NOTED. Pt will be discharged home with a Dx of a sprained wrist. - Diagnoses Provider Diagnoses: Left wrist sprain Discharge ED - Sign-Out/Discharge Documenting (check all that apply): Patient Departure - discharge - Discharge Plan Condition: Stable Disposition: HOME Patient Education Materials: Wrist Sprain (ED) Forms: *Work Release Referrals: Jessica Henning MD [Primary Care Provider] - 11/01/19 Additional Instructions: PLEASE FOLLOW UP WITH YOUR PRIMARY CARE PHYSICIAN IN 1-4 DAYS AND RETURN TO THE EMERGENCY DEPARTMENT FOR ANY NEW OR WORSENING SYMPTOMS. - Billing Disposition and Condition Condition: STABLE Disposition: Home - Attestation Statements Document Initiated by Rekha: Yes Documenting Scribe: Abisai Marquez Provider For Whom Rekha is Documenting (Include Credential): Oscar Montero DO Scribe Attestation: IAbisai, scribed for Oscar Montero DO on 10/30/19 at 1746. Scribe Documentation Reviewed: Yes Provider Attestation: The documentation as recorded by the Abisai garcia accurately reflects the service I personally performed and the decisions made by Oscar roper DO Status of Scribneil Document: Viewed
== END 2019-10-30 17:50 | disposition home or self-care (01) ==
LOC: ED 14:39
DX: S63.502A Unspecified sprain of left wrist, initial encounter (principal); W00.0XXA Fall on same level due to ice and snow, initial encounter; Y92.9 Unspecified place or not applicable; I10 Essential (primary) hypertension; F17.200 Nicotine dependence, unspecified, uncomplicated
CPT/HCPCS: 99282

== ENCOUNTER 2019-11-08 14:45 | Emergency (ER) | payer OTHER ==
[2019-11-08 15:06] VITALS: BP 144/70
--- NOTE | 2019-11-08 15:26 | UC ---
Abdominal Pain Male HPI - HPI Summary HPI Summary: 53 yo male presents with two complaints 1) He fell at work on 10/30 and landed on his LEFT wrist. Since that time it has been improving steadily and he is asking for a note to return to work this weekend. He is right handed. Denies numbness or tingling 2) He also complains of epigastric/RUQ pain for the last month or two that he describes as a burning in nature. This is not present at rest or with activities. He notices this if he smokes, drinks alcohol, or eats spicy foods. Resolves within 1 hour. He states he is very "gassy" at baseline, but has no acid or stomach issues. He denies CRAIG, SOB, chest pain, vomiting, diarrhea or change in stool, back pain. - History of Current Complaint Chief Complaint: UCChestPain Stated Complaint: CHEST PAIN Time Seen by Provider: 11/08/19 14:46 Hx Obtained From: Patient Onset/Duration: Gradual Onset Severity Initially: Moderate Severity Currently: Moderate Pain Intensity: 5 Pain Scale Used: 0-10 Numeric - Allergies/Home Medications Allergies/Adverse Reactions: Allergies Allergy/AdvReac Type Severity Reaction Status Date / Time egg Allergy GI Upset Verified 11/08/19 15:06 milk Allergy Diarrhea Verified 11/08/19 15:06 Home Medications: Home Medications Pantoprazole TAB * [Protonix TAB*] 40 mg PO DAILY #30 tab 11/08/19 [Rx] PMH/Surg Hx/FS Hx/Imm Hx - Additional Past Medical History Additional PMH: None Other History Of: Negative For: HIV, Hepatitis B, Hepatitis C, Anticoagulant Therapy - Surgical History Surgical History: None - Family History Known Family History: Positive: Renal Disease Negative: Cardiac Disease, Hypertension - Social History Lives: With Family Alcohol Use: Occasionally Alcohol Amount: last drink was one week ago Substance Use Type: None Smoking Status (MU): Current Some Day Smoker Amount Used/How Often: 1/2ppd or less Household Exposure Type: Cigarettes - Immunization History Most Recent Tetanus Shot: unsure Review of Systems All Other Systems Reviewed And Are Negative: No Constitutional: Positive: Negative Skin: Positive: Negative Eyes: Positive: Negative ENT: Positive: Negative Respiratory: Positive: Negative Cardiovascular: Positive: Negative Gastrointestinal: Positive: Abdominal Pain Genitourinary: Positive: Negative Neurovascular: Positive: Negative Musculoskeletal: Positive: Other: - Left wrist pain Neurological/Mental Status: Positive: Negative Psychological: Positive: Negative Physical Exam - Summary Physical Exam Summary: GENERAL: NAD. WDWN. No pain distress. SKIN: No rashes, sores, or open wounds. NECK: Supple. Nontender. No lymphadenopathy. CHEST: CTAB. No r/r/w. No accessory muscle use. Breathing comfortably and in no distress. CV: RRR. Pulses intact. Brisk cap refill. ABDOMEN: Soft. NTTP. No distention or guarding. No CVA tenderness. Bowel sounds present. Negative irby sign. MSK: FROM and 5/5 strength throughout. LEFT WRIST: FROM. NTTP. No edema appreciated. NEURO: Alert. PSYCH: Age appropriate behavior. Triage Information Reviewed: Yes Vital Signs: Initial Vital Signs Temp 98.3 F 11/08/19 14:59 Pulse 70 11/08/19 14:59 Resp 16 11/08/19 14:59 BP 144/70 11/08/19 14:59 Pulse Ox 98 11/08/19 14:59 Vital Signs Reviewed: Yes Diagnostics - EKG Summary of EKG Findings: 70 bpm NSR. No STEMI or acute changes as read by Dr. James Abd Pain Male Course/Dx - Course Course Of Treatment: EKG as above. 1) His wrist exam is normal today and he is requesting a note to return to work this weekend - will write for this today. Advised to f/u with Dr. Porras if he does not feel his wrist is continuing to improve 2) Regarding his epigastric/RUQ pain. EKG WNL. He is not having any CP or SOB. Suspect GERD given that his symptoms are described as burning, worsen with spicy food/smoking/drinking alcohol. Will try him with protonix and have him be rechecked by his PCP if symptoms continue. If he develops SOB, chest pain, vomiting, or worsening symptoms to go to the ED. - Differential Dx/Clinical Impression Provider Diagnosis: Left wrist pain, GERD (gastroesophageal reflux disease) Discharge ED - Sign-Out/Discharge Documenting (check all that apply): Patient Departure All imaging exams completed and their final reports reviewed: No Studies - Discharge Plan Condition: Stable Disposition: HOME Prescriptions: Pantoprazole TAB * [Protonix TAB*] 40 mg PO DAILY #30 tab Patient Education Materials: Gastroesophageal Reflux Disease (ED), Wrist Sprain (ED) Forms: *Work Release Referrals: Jessica Henning MD [Primary Care Provider] - Brett Porras MD [Medical Doctor] - If Needed Additional Instructions: If you develop a fever, shortness of breath, chest pain, new or worsening symptoms - please call your PCP or go to the ED immediately. - Billing Disposition and Condition Condition: STABLE Disposition: Home
== END 2019-11-08 15:31 | disposition home or self-care (01) ==
LOC: UCEAST 14:45
DX: K21.9 Gastro-esophageal reflux disease without esophagitis (principal); M25.532 Pain in left wrist; R10.11 Right upper quadrant pain; R10.13 Epigastric pain; Z91.011 Allergy to milk products; Z91.012 Allergy to eggs; F17.210 Nicotine dependence, cigarettes, uncomplicated
CPT/HCPCS: 93005; 99212; G0463